=== PATIENT | female | born 1980 | race Caucasian/White ===

== ENCOUNTER 2021-03-17 15:08 | Emergency (ER) | payer SELFPAY ==
--- OUTSIDE RECORDS SUMMARY | 2021-03-17 15:11 | XMS REPORT | Continuity of Care Document ---
:1980 Author Organization [facility] t Address [address] [place] [address] Care Team Providers Name Role Phone Unavailable Unavailable Unavailable Payers Payer Name Policy Type Policy Number Effective Date Expiration Date S ource Problems This patient has no known problems. Allergies, Adverse Reactions, Alerts Allergy Allergy Status Severity Reaction(s) Onset Inactive Treating Comm ents Source Name Type Date Date Clinician No Known DA Active U 2019-0 RODRÍGUEZ Allergie 04-20 [facility] s 00:00: d 00 [facility] Medications This patient has no known medications. Procedures This patient has no known procedures. Results This patient has no known results.
--- NOTE | 2021-03-17 15:53 | ER ---
Nurse's Notes [facility] Name: Nerissa Lam Age: 40 yrs Sex: Female : 1980 Arrival Date: 03/17/2021 Time: 15:09 Bed 19 Private MD: Diagnosis: Allergic contact dermatitis due to plants, except food Presentation: 03/17 15:26 Chief complaint: Patient states: "I got into poison [place] and it is on my face. it is jd3 burning pretty bad.". Coronavirus screen: At this time, the client does not indicate any symptoms associated with coronavirus-19. Ebola Screen: Patient negative for fever greater than or equal to 101.5 degrees Fahrenheit, and additional compatible Ebola Virus Disease symptoms. Initial Sepsis Screen: Does the patient meet any 2 criteria? No. Patient's initial sepsis screen is negative. Does the patient have a suspected source of infection? No. Patient's initial sepsis screen is negative. Risk Assessment: Do you want to hurt yourself or someone else? Patient reports no desire to harm self or others. Onset of symptoms was March 16, 2021. 15:26 Method Of Arrival: Ambulatory jd3 15:26 Acuity: VIKKI 4 jd3 Triage Assessment: 16:10 General: Appears in no apparent distress. Behavior is calm, cooperative, appropriate ll1 for age. 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 - Social history:: Smoking status: Patient reports the use of cigarette tobacco products, smokes one-half pack cigarettes per day. Screenin:13 Abuse screen: Denies threats or abuse. Nutritional screening: No deficits noted. ll1 Tuberculosis screening: No symptoms or risk factors identified. Fall Risk Total Cruz Fall Scale indicates No Risk (0-24 pts). Assessment: 16:00 General: Appears distressed, Behavior is calm, cooperative, appropriate for age. Pain: ll1 Complains of pain in face/hands Quality of pain is described as burning, Aggravated by increased activity. Neuro: No deficits noted. Cardiovascular: No deficits noted. Respiratory: No deficits noted. Derm: Rash noted that is red, raised, Reports itching, rash with itching all over. Swollen fingers/L side of face. Vital Signs: 15:28 BP 104 / 59; Pulse 88; Resp 17 S; Temp 97.8(TE); Pulse Ox 99% on R/A; Weight 98.88 kg jd3 (R); Height 5 ft. 1 in. (154.94 cm) (R); Pain 5/10; 16:10 BP 132 / 93; Pulse 89; Resp 16; ll1 15:28 Body Mass Index 41.19 (98.88 kg, 154.94 cm) jd3 ED Course: 15:09 Patient arrived in ED. am2 15:27 Triage completed. jd3 15:30 Arm band placed on. jd3 15:31 John Townsend RN is Primary Nurse. ll1 15:31 Patient placed in an exam room, on a stretcher. ll1 15:44 Daisy Hill [facility]. kb 15:44 Shane Wolfe MD is Attending Physician. kb 16:13 Patient has correct armband on for positive identification. Bed in low position. Call ll1 light in reach. Side rails up X 1. Pulse ox on. NIBP on. 16:13 No provider procedures requiring assistance completed. Patient did not have IV access ll1 during this emergency room visit. Administered Medications: 16:04 Drug: predniSONE 40 mg Route: PO; ll1 16:27 Follow up: Response: No adverse reaction ll1 16:04 Drug: Pepcid (famotidine) 20 mg Route: PO; ll1 16:27 Follow up: Response: No adverse reaction; RASS: Alert and Calm (0) ll1 Outcome: 15:52 Discharge ordered by MD. kb 16:13 Patient left the ED. ll1 16:13 Discharged to home ambulatory. ll1 16:13 Condition: stable 16:13 Discharge instructions given to patient, Instructed on discharge instructions, follow up and referral plans. medication usage, Demonstrated understanding of instructions, follow-up care, medications, Prescriptions given X 2. Signatures: Daisy Hill FNP-C BASKET PERSON-[employer]ace Bang am2 Elmer Hu RN RN jd3 Kristian, Lynsay, RN RN ll1
--- NOTE | 2021-03-17 15:53 | EDPHYS ---
Physician Documentation [facility] Name: Nerissa Lam Age: 40 yrs Sex: Female : 1980 Arrival Date: 03/17/2021 Time: 15:09 Bed 19 Private MD: ED Physician Shane Wolfe HPI: 03/17 16:24 This 40 yrs old Female presents to ER via Ambulatory with complaints of Rash, kb Skin Problem. 16:24 The patient's rash thought to be caused by Dermatitis. The rash is located on the left kb arm and face. The rash can be described as erythematous, papular. Onset: The symptoms/episode began/occurred 2 day(s) ago. Associated signs and symptoms: Pertinent positives: itching. Severity of symptoms: At their worst the symptoms were moderate in the emergency department the symptoms are unchanged. The patient has not experienced similar symptoms in the past. The patient has not recently seen a physician. INFORMATION TECH: 15:28 LMP N/A - Irregular menses jd3 Historical: - Allergies: 15:28 No Known Allergies; jd3 - Home Meds: 15:28 None [Active]; jd3 - PMHx: 15:28 None; jd3 - PSHx: 15:28 None; jd3 - Immunization history:: Adult Immunizations up to date. - Social history:: Smoking status: Patient reports the use of cigarette tobacco products, smokes one-half pack cigarettes per day. ROS: 16:23 Constitutional: Negative for fever, chills, and weight loss, Eyes: Negative for injury, kb pain, redness, and discharge, ENT: Negative for injury, pain, and discharge, Respiratory: Negative for shortness of breath, cough, wheezing, and pleuritic chest pain, Neuro: Negative for headache, weakness, numbness, tingling, and seizure. 16:23 Skin: Positive for erythema, rash, swelling, of the face and left arm. Exam: 16:23 Constitutional: This is a well developed, well nourished patient who is awake, alert, kb and in no acute distress. Eyes: Pupils equal round and reactive to light, extra-ocular motions intact. Lids and lashes normal. Conjunctiva and sclera are non-icteric and not injected. Cornea within normal limits. Periorbital areas with no swelling, redness, or edema. ENT: Moist Mucous membranes Respiratory: Respirations even and unlabored. No increased work of breathing, no retractions or nasal flaring. MS/ Extremity: Pulses equal, no cyanosis. Neurovascular intact. Full, normal range of motion. Neuro: Awake and alert, GCS 15, oriented to person, place, time, and situation. Moves all extremities. Normal gait. Psych: Awake, alert, with orientation to person, place and time. Behavior, mood, and affect are within normal limits. 16:23 Skin: rash a moderate rash is noted, consistent with contact dermatitis, on the left arm and face. Vital Signs: 15:28 BP 104 / 59; Pulse 88; Resp 17 S; Temp 97.8(TE); Pulse Ox 99% on R/A; Weight 98.88 kg jd3 (R); Height 5 ft. 1 in. (154.94 cm) (R); Pain 5/10; 16:10 BP 132 / 93; Pulse 89; Resp 16; ll1 15:28 Body Mass Index 41.19 (98.88 kg, 154.94 cm) jd3 MDM: 15:44 Patient medically screened. kb 16:23 Data reviewed: vital signs, nurses notes. Data interpreted: Pulse oximetry: on room air kb is 99 %. Interpretation: normal. Counseling: I had a detailed discussion with the patient and/or guardian regarding: the historical points, exam findings, and any diagnostic results supporting the discharge/admit diagnosis, the need for outpatient follow up, a family practitioner, to return to the emergency department if symptoms worsen or persist or if there are any questions or concerns that arise at home. Administered Medications: 16:04 Drug: predniSONE 40 mg Route: PO; ll1 16:27 Follow up: Response: No adverse reaction ll1 16:04 Drug: Pepcid (famotidine) 20 mg Route: PO; ll1 16:27 Follow up: Response: No adverse reaction; RASS: Alert and Calm (0) ll1 Disposition: 03/18 07:43 Co-signature as Attending Physician, Shane Wolfe MD I agree with the assessment and ari plan of care. Disposition: 03/17/21 15:52 Discharged to Home. Impression: Allergic contact dermatitis due to plants, except food. - Condition is Stable. - Discharge Instructions: Poison [place] Dermatitis, Contact Dermatitis, [id number]. - Prescriptions for Pepcid 20 mg Oral Tablet - take 1 tablet by ORAL route every 12 hours for 5 days; 10 tablet. Prednisone 20 mg Oral Tablet - take 1 tablet by ORAL route once daily for 5 days; 5 tablet. - Work release form, Medication Reconciliation Form, Thank You Letter, Antibiotic Education, Prescription Opioid Use form. - Follow up: Emergency Department; When: As needed; Reason: Worsening of condition. Follow up: Private Physician; When: 2 - 3 days; Reason: Recheck today's complaints, Continuance of care, Re-evaluation by your physician. Signatures: Daisy Hill, RECORD CHANGER TESTER-C RECORD CHANGER TESTER-Shane Lopez MD MD cha Davies, Jonathon RN RN jJohn Denson RN RN ll1 Corrections: (The following items were deleted from the chart) 03/17 16:13 15:52 03/17/2021 15:52 Discharged to Home. Impression: Allergic contact dermatitis due ll1 to plants, except food. Condition is Stable. Forms are Medication Reconciliation Form, Thank You Letter, Antibiotic Education, Prescription Opioid Use. Follow up: Emergency Department; When: As needed; Reason: Worsening of condition. Follow up: Private Physician; When: 2 - 3 days; Reason: Recheck today's complaints, Continuance of care, Re-evaluation by your physician. kb
[2021-03-17] MEDS ORDERED: predniSONE 20 MG TAB ONE (16:18)
[2021-03-17] MEDS ORDERED: FAMOTIDINE 20 MG TAB ONE (16:18)
[2021-03-17 16:38] VITALS: BP 104/59; TEMP 97.8; O2SAT 99
== END 2021-03-17 16:13 | disposition home or self-care (01) ==
LOC: ER 15:08
DX: L23.7 Allergic contact dermatitis due to plants, except food (principal); F17.210 Nicotine dependence, cigarettes, uncomplicated
CPT/HCPCS: 99283; J7512

== ENCOUNTER 2021-03-24 11:37 | Emergency (ER) | payer SELFPAY ==
--- OUTSIDE RECORDS SUMMARY | 2021-03-24 11:40 | XMS REPORT | Continuity of Care Document ---
:1980 Author Organization [facility] t Address [address] [place] [address] Care Team Providers Name Role Phone Unavailable Unavailable Unavailable Payers Payer Name Policy Type Policy Number Effective Date Expiration Date S ource Problems This patient has no known problems. Allergies, Adverse Reactions, Alerts Allergy Allergy Status Severity Reaction(s) Onset Inactive Treating Comm ents Source Name Type Date Date Clinician No Known DA Active U 2019-0 RODRÍGUEZ Allergie 04-20 [facility] s 00:00: d 00 [facility] Medications This patient has no known medications. Procedures This patient has no known procedures. Results This patient has no known results.
--- NOTE | 2021-03-24 13:11 | ER ---
Nurse's Notes [facility] Name: Nerissa Lam Age: 40 yrs Sex: Female : 1980 Arrival Date: 03/24/2021 Time: 11:40 Bed 24 Private MD: Diagnosis: Allergic contact dermatitis Presentation: 03/24 12:01 Chief complaint: Patient states: has had itchy rash for 5 days on face, lalo. legs, em stomach, and private parts, was treated with prednisone and Solu-Medrol after getting into [place], pt denies shortness of breath, reports itchiness has not gone away. Coronavirus screen: Client denies travel out of the [place] in the last 14 days. Ebola Screen: Patient negative for fever greater than or equal to 101.5 degrees Fahrenheit, and additional compatible Ebola Virus Disease symptoms Patient denies exposure to infectious person. Patient denies travel to an Ebola-affected area in the 21 days before illness onset. No symptoms or risks identified at this time. Initial Sepsis Screen: Does the patient meet any 2 criteria? No. Patient's initial sepsis screen is negative. Does the patient have a suspected source of infection? No. Patient's initial sepsis screen is negative. Risk Assessment: Do you want to hurt yourself or someone else? Patient reports no desire to harm self or others. Onset of symptoms was March 24, 2021. 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 - Social history:: Smoking status: Patient reports the use of cigarette tobacco products, smokes one-half pack cigarettes per day. Screenin:00 Abuse screen: Denies threats or abuse. Denies injuries from another. Nutritional jl7 screening: No deficits noted. Tuberculosis screening: No symptoms or risk factors identified. Fall Risk None identified. Assessment: 13:00 General: Appears in no apparent distress. comfortable, Behavior is calm, cooperative, jl7 appropriate for age. Pain: Denies pain. Neuro: Level of Consciousness is awake, alert, obeys commands, Oriented to person, place, time, situation. Cardiovascular: Patient's skin is warm and dry. Respiratory: Airway is patent Respiratory effort is even, unlabored, Respiratory pattern is regular, symmetrical. Derm: Skin is pink, warm \T\ dry. Vital Signs: 12:01 BP 126 / 69; Pulse 86; Resp 18; Temp 98.2(O); Pulse Ox 98% on R/A; Weight 81.65 kg; em Height 5 ft. 1 in. (154.94 cm); Pain 0/10; 12:01 Body Mass Index 34.01 (81.65 kg, 154.94 cm) em ED Course: 11:40 Patient arrived in ED. ds1 12:05 Triage completed. em 12:05 Arm band placed on. em 12:41 Wendy Oviedo RN is Primary Nurse. jl7 12:52 Jg Barakat PA is PHCP. jr8 12:52 Luis Domínguez MD is Attending Physician. jr8 13:00 Patient has correct armband on for positive identification. Bed in low position. Call jl7 light in reach. Side rails up X 1. 13:29 No provider procedures requiring assistance completed. Patient did not have IV access jl7 during this emergency room visit. Administered Medications: No medications were administered Outcome: 13:10 Discharge ordered by . jr8 13:29 Discharged to home ambulatory. jl7 13:29 Condition: stable 13:29 Discharge instructions given to patient, Instructed on discharge instructions, follow up and referral plans. medication usage, Demonstrated understanding of instructions, follow-up care, medications, Prescriptions given X 1. 13:29 Patient left the ED. jl7 Signatures: Jose Song, RN RN BatistaCarine ds1 Jg Barakat PA PA jr8 Wendy Oviedo RN RN jl7
--- NOTE | 2021-03-24 13:11 | EDPHYS ---
Physician Documentation [facility] Name: Nerissa Lam Age: 40 yrs Sex: Female : 1980 Arrival Date: 03/24/2021 Time: 11:40 Bed 24 Private MD: ED Physician Luis Domínguez HPI: 03/24 13:53 This 40 yrs old Female presents to ER via Ambulatory with complaints of Rash. jr8 13:53 Patient stated that she was treated last week for contact dermatitis. Stated that the jr8 prednisone helped but only had a prescription for 5 days. Still having rash and itching but overall has improved . 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 - Social history:: Smoking status: Patient reports the use of cigarette tobacco products, smokes one-half pack cigarettes per day. ROS: 13:53 Eyes: Negative for injury, pain, redness, and discharge, ENT: Negative for injury, jr8 pain, and discharge, Neck: Negative for injury, pain, and swelling, Cardiovascular: Negative for chest pain, palpitations, and edema, Respiratory: Negative for shortness of breath, cough, wheezing, and pleuritic chest pain, Abdomen/GI: Negative for abdominal pain, nausea, vomiting, diarrhea, and constipation, Back: Negative for injury and pain, MS/Extremity: Negative for injury and deformity, Neuro: Negative for headache, weakness, numbness, tingling, and seizure. 13:53 Skin: Positive for rash. Exam: 13:53 Constitutional: This is a well developed, well nourished patient who is awake, alert, jr8 and in no acute distress. Cardiovascular: Regular rate and rhythm with a normal S1 and S2. No gallops, murmurs, or rubs. Normal PMI, no JVD. No pulse deficits. Respiratory: Lungs have equal breath sounds bilaterally, clear to auscultation and percussion. No rales, rhonchi or wheezes noted. No increased work of breathing, no retractions or nasal flaring. MS/ Extremity: Pulses equal, no cyanosis. Neurovascular intact. Full, normal range of motion. Neuro: Awake and alert, GCS 15, oriented to person, place, time, and situation. 13:53 Skin: rash a mild rash is noted, rash can be described as erythematous, papular, on the chest, abdomen, pelvis, right arm and left arm. Vital Signs: 12:01 BP 126 / 69; Pulse 86; Resp 18; Temp 98.2(O); Pulse Ox 98% on R/A; Weight 81.65 kg; em Height 5 ft. 1 in. (154.94 cm); Pain 0/10; 12:01 Body Mass Index 34.01 (81.65 kg, 154.94 cm) em MDM: 12:54 Patient medically screened. 8 13:10 Data reviewed: vital signs, nurses notes, and as a result, I will discharge patient. jr8 Data interpreted: Pulse oximetry: on room air is 98 %. Interpretation: normal. Counseling: I had a detailed discussion with the patient and/or guardian regarding: the historical points, exam findings, and any diagnostic results supporting the discharge/admit diagnosis, the need for outpatient follow up, a family practitioner, to return to the emergency department if symptoms worsen or persist or if there are any questions or concerns that arise at home. Administered Medications: No medications were administered Disposition: 15:08 Co-signature as Attending Physician, Luis Domínguez MD I agree with the assessment and kdr plan of care. Disposition: 03/24/21 13:10 Discharged to Home. Impression: Allergic contact dermatitis. - Condition is Stable. - Discharge Instructions: Contact Dermatitis. - Prescriptions for Medrol (Curtis) 4 mg Oral Tablets, Dose Pack - take 1 tablet by ORAL route as directed - follow package instructions; 1 packet. - Work release form, Medication Reconciliation Form, Thank You Letter, Antibiotic Education, Prescription Opioid Use form. - Follow up: Private Physician; When: 1 week; Reason: Recheck today's complaints, Continuance of care, Re-evaluation by your physician. - Problem is new. - Symptoms have improved. Signatures: Luis Domínguez MD MD [facility] Jose Song, RN RN em Jg Barakat PA PA jr8 Wendy Oviedo RN RN jl7 Corrections: (The following items were deleted from the chart) 13:29 13:10 03/24/2021 13:10 Discharged to Home. Impression: Allergic contact dermatitis. jl7 Condition is Stable. Forms are Medication Reconciliation Form, Thank You Letter, Antibiotic Education, Prescription Opioid Use. Follow up: Private Physician; When: 1 week; Reason: Recheck today's complaints, Continuance of care, Re-evaluation by your physician. Problem is new. Symptoms have improved. jr8 14:28 13:53 Patient stated that he was treated last week for contact dermatitis. Stated that jr8 the prednisone helped but only had a prescription for 5 days. Still having rash and itching but overall has improved . jr8
[2021-03-24 14:07] VITALS: BP 126/69; TEMP 98.2; O2SAT 98
== END 2021-03-24 13:29 | disposition home or self-care (01) ==
LOC: ER 11:37
DX: L23.9 Allergic contact dermatitis, unspecified cause (principal); F17.210 Nicotine dependence, cigarettes, uncomplicated
CPT/HCPCS: 99282

== ENCOUNTER 2021-05-17 10:41 | Emergency (ER) | payer SELFPAY ==
--- OUTSIDE RECORDS SUMMARY | 2021-05-17 10:44 | XMS REPORT | Continuity of Care Document ---
:1980 Author Organization [facility] t Address [address] [place] [address] Care Team Providers Name Role Phone Yenifer, S Attending Clinician Unavailable Physician, Primary or Family Admitting Clinician Unavailabl e Payers Payer Name Policy Type Policy Number Effective Date Expiration Date S ource Problems This patient has no known problems. Allergies, Adverse Reactions, Alerts Allergy Allergy Status Severity Reaction(s) Onset Inactive Treating Comm ents Source Name Type Date Date Clinician No Known DA Active U 0 [facility] Allergie 617 [facility] s 00:00: d 00 [facility] Medications This patient has no known medications. Procedures This patient has no known procedures. Encounters Start End Encounter Admission Attending Care Care Encounter Source Date/Time Date/Time Type Type Clinicians Facility Department ID 2021-03-23 2021-03-23 Emergency EM Yenifer, [facility]Y [id number] [facility] 15:59:00 20:56:[id number] [facility] Results This patient has no known results.
--- NOTE | 2021-05-17 12:37 | RAD REPORT ---
EXAM DESCRIPTION: RAD - Ankle Right 2 View - 05/17/2021 12:11 pm CLINICAL HISTORY: Right ankle pain FINDINGS: No fracture or dislocation is seen. Marked lateral soft tissue swelling. Large plantar calcaneal spur
--- NOTE | 2021-05-17 13:33 | ER ---
Nurse's Notes [facility] Name: Nerissa Lam Age: 40 yrs Sex: Female : 1980 Arrival Date: 05/17/2021 Time: 10:42 Bed DX2 Private MD: Diagnosis: Sprain of ankle-right;Cellulitis of right lower limb Presentation: 05/17 11:06 Chief complaint: Patient states: Right ankle swelling and pain x 2 days, denies trauma. jl7 Coronavirus screen: Client denies travel out of the [place] in the last 14 days. At this time, the client does not indicate any symptoms associated with coronavirus-19. Ebola Screen: No symptoms or risks identified at this time. Initial Sepsis Screen: Does the patient meet any 2 criteria? No. Patient's initial sepsis screen is negative. Does the patient have a suspected source of infection? No. Patient's initial sepsis screen is negative. Risk Assessment: Do you want to hurt yourself or someone else? Patient reports no desire to harm self or others. Onset of symptoms was May 15, 2021. Care prior to arrival: None. 11:06 Method Of Arrival: Ambulatory [facility] 11:06 Acuity: VIKKI 4 jl7 Triage Assessment: 11:07 General: Appears in no apparent distress. uncomfortable, Behavior is calm, cooperative, jl7 appropriate for age. Pain: Complains of pain in right lateral malleolus Pain currently is 8 out of 10 on a pain scale. 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 - Social history:: Smoking status: Patient reports the use of cigarette tobacco products, smokes one pack cigarettes per day. Screenin:36 Abuse screen: Denies threats or abuse. Denies injuries from another. Nutritional iw screening: No deficits noted. Tuberculosis screening: No symptoms or risk factors identified. Fall Risk None identified. Assessment: 12:35 General: Appears in no apparent distress. Behavior is calm, cooperative. Pain: iw Complains of pain in right foot and right lateral malleolus. Neuro: Level of Consciousness is awake, alert, obeys commands, Oriented to person, place, time, situation, Moves all extremities. Cardiovascular: Patient's skin is warm and dry. Respiratory: Respiratory effort is even, unlabored, Respiratory pattern is regular. Derm: Skin is intact, is healthy with good turgor. Musculoskeletal: Swelling present in right lateral malleolus. Vital Signs: 11:06 BP 116 / 73; Pulse 80; Resp 17; Temp 97.3; Pulse Ox 99% ; Weight 89.81 kg; Height 5 ft. jl7 1 in. (154.94 cm); Pain 8/10; 11:06 Body Mass Index 37.41 (89.81 kg, 154.94 cm) jl7 ED Course: 10:42 Patient arrived in ED. am2 11:07 Triage completed. jl7 11:07 Arm band placed on right wrist. Patient placed in waiting room, Patient notified of jl7 wait time. 11:46 Luis Domínguez MD is Attending Physician. kdr 12:11 XRAY Ankle RIGHT 2 view In Process Unspecified. EDMS 12:35 Denise Ragland, RN is Primary Nurse. iw 13:32 Gustavo Garay MD is Referral Physician. kdr 13:39 No provider procedures requiring assistance completed. Patient did not have IV access ld1 during this emergency room visit. intact, bleeding controlled, No redness/swelling at site. 13:40 Patient has correct armband on for positive identification. Bed in low position. Call ld1 light in reach. Side rails up X2. Pulse ox on. NIBP on. Administered Medications: No medications were administered Outcome: 13:33 Discharge ordered by . kdr 13:40 Discharged to home with crutches. ld1 13:40 Condition: stable 13:40 Discharge instructions given to patient, Instructed on discharge instructions, follow up and referral plans. medication usage, Demonstrated understanding of instructions, follow-up care, medications. 13:40 Patient left the ED. ld1 Signatures: Dispatcher [employer] EDMS Luis Domínguez MD MD kdr Denise Ragland RN RN iw Wedny Oviedo RN RN jl7 Peace Clemens am2 Dibbern, Debo, RN RN ld1
--- NOTE | 2021-05-17 13:33 | EDPHYS ---
Physician Documentation [facility] Name: Nerissa Lam Age: 40 yrs Sex: Female : 1980 Arrival Date: 05/17/2021 Time: 10:42 Bed DX2 Private MD: ED Physician Luis Domínguez HPI: 05/17 15:03 This 40 yrs old Female presents to ER via Ambulatory with complaints of right kdr ankle swelling. 15:03 The patient presents with decreased range of motion, an injury, pain, that is acute, kdr swelling, tenderness. The complaints affect the right ankle. Onset: The symptoms/episode began/occurred 3 day(s) ago. Context: The problem was sustained at home, resulted from an unknown cause, The mechanism of injury is unknown. The patient can partially bear weight on the affected extremity. The patient is not able to ambulate. Associated signs and symptoms: Pertinent positives: swelling, of the lateral aspect of right foot. Modifying factors: The symptoms are alleviated by nothing, the symptoms are aggravated by weight bearing. Severity of symptoms: At their worst the symptoms were mild, just prior to arrival, in the emergency department the symptoms are unchanged. The patient has not experienced similar symptoms in the past. The patient has not recently seen a physician. 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 - Social history:: Smoking status: Patient reports the use of cigarette tobacco products, smokes one pack cigarettes per day. ROS: 15:03 Constitutional: Negative for fever, chills, and weight loss, Eyes: Negative for injury, kdr pain, redness, and discharge, Neck: Negative for injury, pain, and swelling, Cardiovascular: Negative for chest pain, palpitations, and edema, Respiratory: Negative for shortness of breath, cough, wheezing, and pleuritic chest pain, Abdomen/GI: Negative for abdominal pain, nausea, vomiting, diarrhea, and constipation, Back: Negative for injury and pain, : Negative for injury, bleeding, discharge, and swelling, Skin: Negative for injury, rash, and discoloration, Neuro: Negative for headache, weakness, numbness, tingling, and seizure activity. Psych: Negative for depression, anxiety, suicide ideation, homicidal ideation, and hallucinations, Allergy/Immunology: Negative for hives, rash, and allergies, Endocrine: Negative for neck swelling, polydipsia, polyuria, polyphagia, and marked weight changes, Hematologic/Lymphatic: Negative for swollen nodes, abnormal bleeding, and unusual bruising. 15:03 MS/extremity: Positive for injury or acute deformity, decreased range of motion, pain, swelling, tenderness, of the lateral aspect of right foot. Exam: 15:03 Constitutional: This is a well developed, well nourished patient who is awake, alert, kdr and in no acute distress. 15:03 Musculoskeletal/extremity: ROM: full passive range of motion, in the lateral aspect of right foot, Circulation is intact in all extremities. Sensation intact. Vital Signs: 11:06 BP 116 / 73; Pulse 80; Resp 17; Temp 97.3; Pulse Ox 99% ; Weight 89.81 kg; Height 5 ft. jl7 1 in. (154.94 cm); Pain 8/10; 11:06 Body Mass Index 37.41 (89.81 kg, 154.94 cm) jl7 MDM: 13:33 Patient medically screened. kdr 15:03 Data reviewed: vital signs, nurses notes, radiologic studies. Counseling: I had a kdr detailed discussion with the patient and/or guardian regarding: the historical points, exam findings, and any diagnostic results supporting the discharge/admit diagnosis, radiology results, the need for outpatient follow up. Response to treatment: patient is well hydrated. Special discussion: I discussed with the patient/guardian in detail that at this point there is no indication for admission to the hospital. It is understood, however, that if the symptoms persist or worsen the patient needs to return immediately for re-evaluation. 05/17 11:09 Order name: XRAY Ankle RIGHT 2 view; Complete Time: 13:19 jl7 05/17 13:26 Order name: Darren wrap-joint; Complete Time: 13:33 kdr 05/17 13:26 Order name: Crutches; Complete Time: 13:33 kdr Administered Medications: No medications were administered Disposition Summary: 05/17/21 13:33 Discharge Ordered Location: Home kdr Problem: new kdr Symptoms: have improved kdr Condition: Stable kdr Diagnosis - Sprain of ankle - right kdr - Cellulitis of right lower limb kdr Followup: kdr - With: Private Physician - When: 2 - 3 days - Reason: If symptoms return, Further diagnostic work-up, Recheck today's complaints, Continuance of care, Re-evaluation by your physician Followup: kdr - With: Gustavo Garay MD - When: 2 - 3 days - Reason: If symptoms return, Further diagnostic work-up, Recheck today's complaints, Continuance of care, Re-evaluation by your physician Discharge Instructions: - Discharge Summary Sheet kdr - Ankle Sprain, [id number] kdr - Cellulitis, Adult, [id number] kdr - Ankle Pain kdr Forms: - Medication Reconciliation Form kdr - Thank You Letter kdr - Antibiotic Education kdr - Work release form mt Prescriptions: - Cephalexin 500 mg Oral Capsule - take 1 capsule by ORAL route every 8 hours for 10 days; 21 capsule; Refills: 0, kdr Product Selection Permitted - Ibuprofen 600 mg Oral Tablet - take 1 tablet by ORAL route every 6 hours As needed take with food; 12 tablet; kdr Refills: 0, Product Selection Permitted Signatures: Dispatcher [employer] Luis Gamez MD MD kdr Wendy Oviedo RN RN jl7
[2021-05-17 13:57] VITALS: BP 116/73; TEMP 97.3; O2SAT 99
== END 2021-05-17 13:40 | disposition home or self-care (01) ==
LOC: ER 10:41
DX: S93.401A Sprain of unspecified ligament of right ankle, initial encounter (principal); L03.115 Cellulitis of right lower limb; F17.210 Nicotine dependence, cigarettes, uncomplicated
CPT/HCPCS: 99283

== ENCOUNTER 2022-01-10 08:54 | Emergency (ER) | payer OTHER, SELFPAY ==
--- OUTSIDE RECORDS SUMMARY | 2022-01-10 08:57 | XMS REPORT | Continuity of Care Document ---
:1980 Author Organization [facility] t Address [address] [place] [address] Care Team Providers Name Role Phone Yenifer, [...] Date Clinician No Known DA Active U 2020-0 [facility] Allergie 04-20 [facility] s 00:00: d 00 [facility] No Known DA Active U 2020-0 [facility] Medications This patient has no known medications. Procedures This patient has no known procedures. Encounters Start End Encounter Admission Attending Care Care Encounter Source Date/Time Date/Time Type Type Clinicians Facility Department ID 2020-04-20 Inpatient [facility] FRANDY [id number] [facility] 01:50:00 [id number] [facility] 2021-03-23 2021-03-23 Emergency EM Yenifer, RODRÍGUEZMN FRANDY [id number] [facility] 15:59:00 20:56:00 Marina [id number] [facility] Results This patient has no known results.
--- NOTE | 2022-01-10 09:08 | EDPHYS ---
Physician Documentation [facility] Name: Nerissa Lam Age: 41 yrs Sex: Female : 1980 Arrival Date: 01/10/2022 Time: 08:57 Bed 7 Private MD: Shane Tomlinson HPI: 01/10 09:09 This 41 yrs old Female presents to ER via Unassigned with complaints of Hand Swelling, jmm Arm Pain - swelling. 09:09 The patient or guardian reports swelling. Onset: The symptoms/episode began/occurred jmm gradually, 2 day(s) ago. Modifying factors: The symptoms are alleviated by nothing, the symptoms are aggravated by nothing. Associated signs and symptoms: Pertinent negatives: fever. This is a 41-year-old female no chronic medical conditions presents emerged part with complaints of swelling to her hands bilaterally. 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 Denies pain but states both of her hands itch and feel "stinging". 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 - Social history:: Smoking status: Patient reports the use of cigarette tobacco products, smokes one-half pack cigarettes per day. ROS: 09:09 Constitutional: Negative for fever, chills, and weight loss, Cardiovascular: Negative jmm for chest pain, palpitations, and edema, Respiratory: Negative for shortness of breath, cough, wheezing, and pleuritic chest pain. 09:09 Skin: Positive for erythema, rash, swelling. 09:09 All other systems are negative. Exam: 09:09 Constitutional: This is a well developed, well nourished patient who is awake, alert, jmm and in no acute distress. Head/Face: atraumatic. Eyes: EOMI, no conjunctival erythema appreciated ENT: Moist Mucus Membranes Neck: Trachea midline, Supple Chest/axilla: Normal chest wall appearance and motion. Cardiovascular: Regular rate and rhythm. No edema appreciated Respiratory: Normal respirations, no respiratory distress appreciated Abdomen/GI: Non distended, soft Back: Normal ROM 09:09 Musculoskeletal/extremity: Full range of motion noted to the hands and wrist bilaterally, full radial pulse bilaterally, full orthotic assistant strength, compartments are soft, neurovascular intact. 09:09 Skin: Erythema and swelling noted to the hands bilaterally, nontender to palpation, nonindurated. 09:09 Neuro: Orientation: is normal, Mentation: is normal, Memory: is normal. 09:09 Psych: Behavior/mood is pleasant, cooperative. Vital Signs: 09:07 BP 145 / 99; Pulse 92; Resp 17; Temp 97.9; Pulse Ox 99% ; Weight 81.19 kg; Height 5 ft. ap3 1 in. (154.94 cm); 09:07 Body Mass Index 33.82 (81.19 kg, 154.94 cm) ap3 MDM: 09:07 Patient medically screened. [facility] 09:11 Data reviewed: vital signs, nurses notes. Counseling: I had a detailed discussion with [facility] the patient and/or guardian regarding: the historical points, exam findings, and any diagnostic results supporting the discharge/admit diagnosis, the need for outpatient follow up, to return to the emergency department if symptoms worsen or persist or if there are any questions or concerns that arise at home. ED course: Patient is alert nontoxic in appearance in the ED. Physical exam findings most consistent with dermatitis. Advised follow-up with dermatology and otherwise given strict return precautions. Patient understood agrees plan of care.. Administered Medications: No medications were administered Disposition Summary: 01/10/22 09:07 Discharge Ordered Location: Home [facility] Condition: Stable [facility] Diagnosis - Dermatitis of Hand [facility] Followup: [facility] - With: Private Physician - When: 2 - 3 days - Reason: Recheck today's complaints, Continuance of care, Re-evaluation by your physician Discharge Instructions: - Discharge Summary Sheet [facility] - Contact Dermatitis [facility] Forms: - Medication Reconciliation Form [facility] - Work release form [facility] - Thank You Letter [facility] - Antibiotic Education [facility] - Prescription Opioid Use [facility] Prescriptions: - Prednisone 20 mg Oral Tablet - take 3 tablets by ORAL route once daily for 5 days; 15 tablet; Refills: 0, [facility] Product Selection Permitted - Doxycycline Hyclate 100 mg Oral Tablet - take 1 tablet by ORAL route every 12 hours; 20 tablet; Refills: 0, Product [facility] Selection Permitted Addendum: 01/14/2022 18:22 Co-signature as Attending Physician, Shane Wolfe MD I agree with the assessment and c sharp plan of care. Signatures: Shane Wolfe, Joe Khan MD, cha, PA PA jmm Prokisch, Amanda, RN RN ap3 Corrections: (The following items were deleted from the chart) 01/10 09:10 09:09 PSHx: section; ap3 ap3
--- NOTE | 2022-01-10 09:31 | ER ---
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 This even occurred on 01/04/2022, and has yet to resolve. Patient presents with redness on the lower portion of her upper extremities, including her hands and fingers. Coronavirus screen: At this time, the client does not indicate any symptoms associated with coronavirus-19. Ebola Screen: No symptoms or risks identified at this time. Initial Sepsis Screen: Does the patient meet any 2 criteria? No. Patient's initial sepsis screen is negative. Does the patient have a suspected source of infection? No. Patient's initial sepsis screen is negative. Risk Assessment: Do you want to hurt yourself or someone else? Patient reports no desire to harm self or others. Onset of symptoms was January 04, 2022. 09:07 Method Of Arrival: Ambulatory ap3 09:07 Acuity: VIKKI 4 ap3 Triage Assessment: 09:10 General: Appears in no apparent distress. Behavior is calm, cooperative. Pain: Denies ap3 pain. Neuro: Level of Consciousness is awake, alert, obeys commands, Oriented to person, place, time, situation, Appropriate for age. Cardiovascular: Patient's skin is warm and dry. Respiratory: Airway is patent. Derm: Derm: Skin is redness noted on the lower portion of her upper extremities. Musculoskeletal: Swelling present in right arm and left arm. 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 - Social history:: Smoking status: Patient reports the use of cigarette tobacco products, smokes one-half pack cigarettes per day. Screenin:11 Abuse screen: Denies threats or abuse. Nutritional screening: No deficits noted. ap3 Tuberculosis screening: No symptoms or risk factors identified. Fall Risk None identified. Vital Signs: 09:07 BP 145 / 99; Pulse 92; Resp 17; Temp 97.9; Pulse Ox 99% ; Weight 81.19 kg; Height 5 ft. ap3 1 in. (154.94 cm); 09:07 Body Mass Index 33.82 (81.19 kg, 154.94 cm) ap3 ED Course: 08:57 Patient arrived in ED. as 09:01 Joe Degroot PA is PHCP. [place] 09:01 Shane Wolfe MD is Attending Physician. [facility] 09:07 Peace Pascal, CARRIE is Primary Nurse. ap3 09:09 Triage completed. ap3 09:11 Patient has correct armband on for positive identification. Bed in low position. Call ap3 light in reach. Side rails up X 1. Adult w/ patient. Pulse ox on. NIBP on. Door closed. Noise minimized. 09:11 Arm band placed on right wrist. ap3 09:11 No provider procedures requiring assistance completed. Patient did not have IV access ap3 during this emergency room visit. Administered Medications: No medications were administered Outcome: 09:07 Discharge ordered by . [facility] 09:12 Condition: good ap3 09:20 Discharged to home ambulatory, with family. ap3 09:20 Discharge instructions given to patient, Instructed on discharge instructions, follow up and referral plans. medication usage, Demonstrated understanding of instructions, follow-up care, medications, Prescriptions given X 2. 09:30 Patient left the ED. ap3 Signatures: Joe Degroot PA PA Sandra Shelley Amanda, RN RN ap3 Corrections: (The following items were deleted from the chart) 09:10 09:09 PSHx: section; ap3 ap3
[2022-01-10 09:37] VITALS: BP 145/99; TEMP 97.9; O2SAT 99
== END 2022-01-10 09:30 | disposition home or self-care (01) ==
LOC: ER 08:54
DX: L30.9 Dermatitis, unspecified (principal); F17.210 Nicotine dependence, cigarettes, uncomplicated
CPT/HCPCS: 99283

== ENCOUNTER 2022-02-25 20:47 | Emergency (ER) | payer SELFPAY ==
--- OUTSIDE RECORDS SUMMARY | 2022-02-25 20:50 | XMS REPORT | Continuity of Care Document ---
:1980 Author Organization [facility] t Address [address] [place] [address] Care Team Providers Name Role Phone Yenifer, [...] Clinician No Known DA Active U 2020-0 [facility] Allergie 04-20 [facility] s 00:00: d 00 [facility] No Known DA Active U 2020-0 [facility] Allergie 04-20 [facility] s 00:00: d 00 [facility] Medications This patient has no known medications. Procedures This patient has no known procedures. Encounters Start End Encounter Admission Attending Care Care Encounter Source Date/Time Date/Time Type Type Clinicians Facility Department ID 2020-04-20 Inpatient [facility] FRANDY [id number] [facility] 01:50:00 [id number] [facility] 2021-03-23 2021-03-23 Emergency EM Yenifer, RODRÍGUEZMN FRANDY [id number] [facility] 15:59:00 20:56:00 Marina [id number] [facility] Results This patient has no known results.
[2022-02-25] MEDS ORDERED: IBUPROFEN 400 MG TAB ONE (22:17)
[2022-02-25] MEDS ORDERED: HYDROCODONE/APAP 7.5/325 MG TAB ONE (22:18)
--- NOTE | 2022-02-25 23:29 | EDPHYS ---
Physician Documentation [facility] Name: Nerissa Lam Age: 41 yrs Sex: Female : 1980 Arrival Date: 02/25/2022 Time: 20:49 Bed 13 Private MD: ED Physician Luis Domínguez HPI: 02/25 22:15 This 41 yrs old Female presents to ER via Ambulatory with complaints of Knee Pain, cp Ankle Swelling. 22:15 The patient presents with pain, that is acute, swelling, tenderness. The complaints cp affect the right ankle and right knee. 22:15 Context: resulted from an unknown cause, the patient can fully bear weight, the patient cp is able to ambulate, with moderate difficulty, Problem is a result from a previous injury: No. Onset: The symptoms/episode began/occurred gradually, and became worse today. Modifying factors: the symptoms are aggravated by weight bearing, bending knee. 22:15 Associated signs and symptoms: Pertinent negatives fever, numbness, warmth, weakness. cp Treatment prior to arrival includes: no previous treatment. 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 - Social history:: Smoking status: Patient reports the use of cigarette tobacco products, smokes 1.5 packs per day. ROS: 22:20 MS/extremity: Positive for pain, swelling, tenderness, of the right ankle and right cp knee, Negative for injury or acute deformity, decreased range of motion, paresthesias. 22:20 Eyes: Negative for injury, pain, redness, and discharge. cp 22:20 Constitutional: Negative for body aches, chills, fever, poor PO intake. 22:20 Neck: Negative for pain with movement, pain at rest, stiffness. 22:20 Cardiovascular: Negative for chest pain, palpitations. 22:20 Respiratory: Negative for cough, shortness of breath, wheezing. 22:20 Abdomen/GI: Negative for abdominal pain, nausea, vomiting, and diarrhea. 22:20 Back: Negative for pain at rest, pain with movement. 22:20 Neuro: Negative for dizziness, headache, weakness. 22:20 All other systems are negative. Exam: 22:25 Constitutional: The patient appears in no acute distress, alert, awake, non-toxic, well cp developed, well nourished, uncomfortable. 22:25 Head/Face: Normocephalic, atraumatic. cp 22:25 Neck: ROM/movement: is normal, is supple, without pain, no range of motions limitations. 22:25 Chest/axilla: Inspection: normal. 22:25 Cardiovascular: Rate: normal. 22:25 Respiratory: the patient does not display signs of respiratory distress, Respirations: normal, no use of accessory muscles, no retractions, labored breathing, is not present. 22:25 Abdomen/GI: Inspection: abdomen appears normal. 22:25 Back: pain, is absent, ROM is normal. 22:25 Musculoskeletal/extremity: Extremities: no gross swelling noted, skin discoloration and/or skin erythema, Joints: the right knee displays pain at rest, painful range of motion, swelling, tenderness, the lateral right ankle displays pain at rest, painful range of motion, swelling, tenderness, DVT Exam: tenderness, that is moderate, of the right leg, of the right calf. Vital Signs: 21:35 BP 99 / 68; Pulse 77; Resp 18; Temp 98.9(O); Pulse Ox 99% on R/A; Weight 83.91 kg; 5 Height 5 ft. 1 in. (154.94 cm); Pain 8/10; 23:24 BP 113 / 61; Pulse 77; Resp 17; Pulse Ox 97% on R/A; 5 21:35 Body Mass Index 34.96 (83.91 kg, 154.94 cm) [facility] MDM: 21:27 Patient medically screened. cp 23:28 Data reviewed: vital signs, nurses notes, radiologic studies, plain films. cp 23:28 Test interpretation: by ED physician or midlevel provider: plain radiologic studies. cp Counseling: I had a detailed discussion with the patient and/or guardian regarding: the historical points, exam findings, and any diagnostic results supporting the discharge/admit diagnosis, radiology results, the need for outpatient follow up, a orthopedic surgeon, to return to the emergency department if symptoms worsen or persist or if there are any questions or concerns that arise at home. Response to treatment: the patient's symptoms have markedly improved after treatment, and as a result, I will discharge patient. 02/25 21:59 Order name: US Extremity Venous Unilateral Ltd cp 02/25 22:02 Order name: XRAY Knee RIGHT 3 view cp 02/25 22:02 Order name: XRAY Ankle RIGHT 3 view cp 02/25 23:19 Order name: Darren Wrap: right knee; Complete Time: 23:48 cp 02/25 23:19 Order name: Aircast Ankle Splint; Complete Time: 23:48 cp 02/25 23:19 Order name: Crutches; Complete Time: 23:48 cp Administered Medications: 22:17 Drug: Ibuprofen 800 mg Route: PO; sm5 23:25 Follow up: Response: Pain is decreased sm5 22:17 Drug: Hydrocodone-Acetaminophen (7.5 mg-325 mg) 1 tabs Route: PO; sm5 23:25 Follow up: Response: Pain is decreased sm5 Disposition Summary: 02/25/22 23:29 Discharge Ordered Location: Home cp Problem: new cp Symptoms: have improved cp Condition: Stable cp Diagnosis - Pain in right knee cp - Pain in right ankle and joints of right foot cp Followup: cp - With: Amari Zavaleta MD - When: 2 - 3 days - Reason: Worsening of condition Discharge Instructions: - Discharge Summary Sheet cp - Elastic Bandage and RICE Therapy cp - Acute Knee Pain, Adult cp - Ankle Pain cp - Form - Excuse from Work, School, or Physical Activity cp Forms: - Medication Reconciliation Form cp - Thank You Letter cp - Antibiotic Education cp - Prescription Opioid Use cp - Family Work Release cp Prescriptions: - Ultram 50 mg Oral Tablet - take 1 tablet by ORAL route every 6 hours As needed; 12 tablet; Refills: 0, cp Product Selection Permitted - Diclofenac Sodium 75 mg Oral Tablet Sustained Release - take 1 tablet by ORAL route 2 times per day; 30 tablet; Refills: 0, Product cp Selection Permitted Addendum: 02/28/2022 08:30 Co-signature as Attending Physician, Luis Domínguez MD I agree with the assessment and k dr plan of care. Signatures: Dispatcher [employer] Luis Gamez MD MD kdr Page, Corey, PA PA cp Mayelin iDsla, RN RN sm5
--- NOTE | 2022-02-25 23:29 | ER ---
Nurse's Notes [facility] Name: Nerissa Lam Age: 41 yrs Sex: Female : 1980 Arrival Date: 02/25/2022 Time: 20:49 Bed 13 Private MD: Diagnosis: Pain in right knee;Pain in right ankle and joints of right foot Presentation: 02/25 21:35 Chief complaint: Patient states: she has been having knee pain for the past few weeks sm5 as well as ankle swelling. denies injury or trauma. Coronavirus screen: Vaccine status: Patient reports being unvaccinated. Ebola Screen: No symptoms or risks identified at this time. Initial Sepsis Screen: Does the patient meet any 2 criteria? No. Patient's initial sepsis screen is negative. Does the patient have a suspected source of infection? No. Patient's initial sepsis screen is negative. Risk Assessment: Do you want to hurt yourself or someone else? Patient reports no desire to harm self or others. Onset of symptoms was February 11, 2022. 21:35 Method Of Arrival: Ambulatory 5 21:35 Acuity: VIKKI 4 sm5 Triage Assessment: 21:36 General: Appears in no apparent distress. Behavior is cooperative. Pain: Complains of sm5 pain in right knee and anterior aspect of right ankle. Neuro: No deficits noted. Level of Consciousness is awake, alert, obeys commands, Oriented to person, place, time, situation. Cardiovascular: No deficits noted. Capillary refill < 3 seconds Patient's skin is warm and dry. Respiratory: No deficits noted. Airway is patent Trachea midline Respiratory effort is even, unlabored. Musculoskeletal: Swelling present in right ankle. YARD CLERK: 23:49 unknown sm5 Historical: - Allergies: 21:36 No Known Allergies; sm5 - Home Meds: 21:36 None [Active]; sm5 - PMHx: 21:36 None; sm5 - Immunization history:: Client reports having NOT received the Covid vaccine. - Social history:: Smoking status: Patient reports the use of cigarette tobacco products, smokes 1.5 packs per day. Screenin:37 Abuse screen: Denies threats or abuse. Denies injuries from another. Nutritional sm5 screening: No deficits noted. Tuberculosis screening: No symptoms or risk factors identified. Fall Risk None identified. Assessment: 21:45 Reassessment: see triage assessment. sm5 22:50 Reassessment: No changes from previously documented assessment. Patient and/or family 5 updated on plan of care and expected duration. Pain level reassessed. Vital Signs: 21:35 BP 99 / 68; Pulse 77; Resp 18; Temp 98.9(O); Pulse Ox 99% on R/A; Weight 83.91 kg; sm5 Height 5 ft. 1 in. (154.94 cm); Pain 8/10; 23:24 BP 113 / 61; Pulse 77; Resp 17; Pulse Ox 97% on R/A; sm5 21:35 Body Mass Index 34.96 (83.91 kg, 154.94 cm) 5 ED Course: 20:49 Patient arrived in ED. mr 21:25 Shane Mayo PA is PHCP. cp 21:25 Luis Domínguez MD is Attending Physician. cp 21:31 Mayelin Disla, CARRIE is Primary Nurse. sm5 21:36 Triage completed. sm5 21:37 Arm band placed on right wrist. sm5 21:37 Patient has correct armband on for positive identification. Bed in low position. Call 5 light in reach. Side rails up X2. Pulse ox on. NIBP on. 22:19 XRAY Knee RIGHT 3 view In Process Unspecified. EDMS 22:19 XRAY Ankle RIGHT 3 view In Process Unspecified. EDMS 23:22 US Extremity Venous Unilateral Ltd In Process Unspecified. EDMS 23:28 Amari Zavaleta MD is Referral Physician. cp 23:48 Crutch training done. Darren wrap to right knee Air stirrup applied to right ankle. sm5 23:49 No provider procedures requiring assistance completed. Patient did not have IV access 5 during this emergency room visit. Administered Medications: 22:17 Drug: Ibuprofen 800 mg Route: PO; sm5 23:25 Follow up: Response: Pain is decreased sm5 22:17 Drug: Hydrocodone-Acetaminophen (7.5 mg-325 mg) 1 tabs Route: PO; sm5 23:25 Follow up: Response: Pain is decreased 5 Outcome: 23:29 Discharge ordered by . cp 23:50 Discharged to home ambulatory, with crutches, with family. sm5 23:50 Condition: stable 23:50 Discharge instructions given to patient, Instructed on discharge instructions, follow up and referral plans. crutch walking, Demonstrated understanding of instructions, follow-up care, crutch walking, Prescriptions given X 2. 23:50 Patient left the ED. sm5 Signatures: Dispatcher [employer] DANIELLE CarlisleClara mr Shane Mayo, Mayelin Kim cp, RN RN sm5
[2022-02-25 23:55] VITALS: TEMP 98.9
[2022-02-25 23:56] VITALS: BP 113/61; O2SAT 97
--- NOTE | 2022-02-26 13:45 | RAD REPORT ---
EXAM DESCRIPTION: RAD - Knee Right 3 View - 02/25/2022 10:17 pm CLINICAL HISTORY: PAIN. COMPARISON: None. TECHNIQUE: Three views of the right knee: AP, oblique, and lateral radiographs. FINDINGS: No acute osseous abnormality is identified. Alignment is maintained. No evidence of suprap atellar joint effusion. IMPRESSION: No acute osseous abnormality identified. Electronically signed by: Robyn Couch MD 02/25/2022 10:35 PM CDT Due to temporary technical issues with the PACS/Fluency reporting system, reports are being signed by the in house radiologists without review as a courtesy to insure prompt reporting. The interpreting radiologist is fully responsible for the content of the report
--- NOTE | 2022-02-26 13:47 | RAD REPORT ---
EXAM DESCRIPTION: RAD - Ankle Right 3 View - 02/25/2022 10:17 pm CLINICAL HISTORY: PAIN. COMPARISON: None. TECHNIQUE: Three views of the right ankle were obtained: AP, oblique, and lateral radiographs. FINDINGS: No acute osseous abnormality is identified. No ankle mortise widening. The talar dome appe ars intact. Small chronic plantar fascial enthesophyte. Soft tissue swelling about the ankle. IMPRESSION: No acute osseous abnormality identified. Electronically signed by: Robyn Couch MD 02/25/2022 10:35 PM CDT Due to temporary technical issues with the PACS/Fluency reporting system, reports are being signed by the in house radiologists without review as a courtesy to insure prompt reporting. The interpreting radiologist is fully responsible for the content of the report
--- NOTE | 2022-02-26 13:49 | RAD REPORT ---
EXAM DESCRIPTION: US - Extremity Venous Uni Ltd - 02/26/2022 12:03 am CLINICAL HISTORY: PAIN Extremity Venous Uni Ltd COMPARISON: None. TECHNIQUE: Grayscale, color Doppler, and spectral Doppler imaging of the right lower extremity venou s system. FINDINGS: Normal compressibility and flow identified in the right common femoral, superficial femora l, popliteal, and visualized calf veins. No echogenic thrombus identified. No soft tissue abnormaliti es. Respiratory phasicity in the common femoral veins. IMPRESSION: No evidence of right lower extremity DVT. Electronically signed by: Troy Singh 02/25/2022 11:41 PM CDT Due to temporary technical issues with the PACS/Fluency reporting system, reports are being signed by the in house radiologists without review as a courtesy to insure prompt reporting. The interpreting radiologist is fully responsible for the content of the report
== END 2022-02-25 23:50 | disposition home or self-care (01) ==
LOC: ER 20:47
DX: M25.561 Pain in right knee (principal); M25.571 Pain in right ankle and joints of right foot; F17.210 Nicotine dependence, cigarettes, uncomplicated
CPT/HCPCS: 93971; 99284

== ENCOUNTER 2022-05-21 19:35 | Emergency (ER) | payer SELFPAY ==
--- NOTE | 2022-05-21 22:34 | EDPHYS ---
Physician Documentation [facility] Name: Nerissa Lam Age: 41 yrs Sex: Female : 1980 Arrival Date: 05/21/2022 Time: 19:37 Bed Waiting Private MD: ED Physician Siddharth Kruger HPI: 05/22 00:46 This 41 yrs old Female presents to ER via Ambulatory with complaints of Cough, Achy. kb 00:46 The patient or guardian reports cough, that is intermittent, described as mild, flu kb symptoms, myalgias. Onset: The symptoms/episode began/occurred 2 day(s) ago. Severity of symptoms: At their worst the symptoms were mild, in the emergency department the symptoms are unchanged. Modifying factors: The symptoms are alleviated by nothing, the symptoms are aggravated by nothing. Associated signs and symptoms: The patient has no apparent associated signs or symptoms. The patient has not experienced similar symptoms in the past. The patient has not recently seen a physician. Pt reports cough, malaise, chills and bodyaches for 2 days. Historical: - Allergies: 05/21 20:04 No Known Allergies; hb - PMHx: 20:04 None; hb - PSHx: 20:04 section; hb - Immunization history:: Client reports having NOT received the Covid vaccine. - Social history:: Smoking status: Patient denies any tobacco usage or history of. ROS: 05/22 00:46 Abdomen/GI: Negative for abdominal pain, nausea, vomiting, diarrhea, and constipation. kb Constitutional: Positive for body aches, chills, fatigue, malaise. Respiratory: Positive for cough. All other systems are negative. Exam: 00:46 Constitutional: This is a well developed, well nourished patient who is awake, alert, kb and in no acute distress. Head/Face: Normocephalic, atraumatic. ENT: Moist Mucous membranes Cardiovascular: Regular rate and rhythm with a normal S1 and S2. No gallops, murmurs, or rubs. No pulse deficits. Respiratory: Respirations even and unlabored. No increased work of breathing. Talking in full sentences Abdomen/GI: Soft, non-tender. No distention Skin: Warm, dry with normal turgor. Normal color. MS/ Extremity: Pulses equal, no cyanosis. Neurovascular intact. Full, normal range of motion. Neuro: Awake and alert, GCS 15, oriented to person, place, time, and situation. Moves all extremities. Normal gait. Psych: Awake, alert, with orientation to person, place and time. Behavior, mood, and affect are within normal limits. Vital Signs: 05/21 20:02 BP 125 / 79; Pulse 100; Resp 18; Temp 98.0; Pulse Ox 100% ; Weight 95.25 kg; Height 5 hb ft. 1 in. (154.94 cm); Pain 8/10; 20:02 Body Mass Index 39.68 (95.25 kg, 154.94 cm) hb MDM: 20:08 Patient medically screened. kb 05/22 00:46 Data reviewed: vital signs, nurses notes. Data interpreted: Pulse oximetry: on room air kb is 100 %. Interpretation: normal. Counseling: I had a detailed discussion with the patient and/or guardian regarding: the historical points, exam findings, and any diagnostic results supporting the discharge/admit diagnosis, lab results, the need for outpatient follow up, a family practitioner, to return to the emergency department if symptoms worsen or persist or if there are any questions or concerns that arise at home. 05/21 20:06 Order name: Flu; Complete Time: 21:56 kb 05/21 20:06 Order name: COVID-19 SARS RT PCR (Document "Date of Onset" if Symptomatic); Complete kb Time: 22:32 Administered Medications: No medications were administered Disposition: 04:24 Co-signature as Attending Physician, Siddharth Kruger MD. rn Disposition Summary: 05/21/22 22:33 Discharge Ordered Location: Home kb Condition: Stable kb Diagnosis - Coronavirus infection, unspecified kb Followup: kb - With: Emergency Department - When: As needed - Reason: Worsening of condition Followup: kb - With: Private Physician - When: 2 - 3 days - Reason: Recheck today's complaints, Continuance of care, Re-evaluation by your physician Discharge Instructions: - Discharge Summary Sheet kb - Viral Respiratory Infection, [id number] kb - COVID-19 kb Forms: - Medication Reconciliation Form kb - Thank You Letter kb - Antibiotic Education kb - Prescription Opioid Use kb Signatures: Dispatcher [employer] EDMS [place], TEST SKEIN WINDER-C IRISH-Ckb KrugerSiddharth ward MD MD rn Baxter, Heather, CARRIE RN hb
--- NOTE | 2022-05-21 22:34 | ER ---
Nurse's Notes [facility] Name: Nerissa Lam Age: 41 yrs Sex: Female : 1980 Arrival Date: 05/21/2022 Time: 19:37 Bed Waiting Private MD: Diagnosis: Coronavirus infection, unspecified Presentation: 05/21 20:02 Chief complaint: Body aches, chills, cough, and malaise x 2 days. Denies fever. hb Coronavirus screen: Client presents with at least one sign or symptom that may indicate coronavirus-19. Standard/surgical mask placed on the client. Provider contacted for isolation considerations. Ebola Screen: No symptoms or risks identified at this time. Initial Sepsis Screen: Does the patient meet any 2 criteria? No. Patient's initial sepsis screen is negative. Does the patient have a suspected source of infection? No. Patient's initial sepsis screen is negative. Risk Assessment: Do you want to hurt yourself or someone else? Patient reports no desire to harm self or others. Onset of symptoms was May 20, 2022. 20:02 Method Of Arrival: Ambulatory hb 20:02 Acuity: VIKKI 4 hb Historical: - Allergies: 20:04 No Known Allergies; hb - PMHx: 20:04 None; hb - PSHx: 20:04 section; hb - Immunization history:: Client reports having NOT received the Covid vaccine. - Social history:: Smoking status: Patient denies any tobacco usage or history of. Vital Signs: 20:02 BP 125 / 79; Pulse 100; Resp 18; Temp 98.0; Pulse Ox 100% ; Weight 95.25 kg; Height 5 hb ft. 1 in. (154.94 cm); Pain 8/10; 20:02 Body Mass Index 39.68 (95.25 kg, 154.94 cm) hb ED Course: 19:37 Patient arrived in ED. bp1 19:38 [facility]. kb 19:38 Siddharth Kruger MD is Attending Physician. kb 20:04 Triage completed. hb 20:04 Arm band placed on. hb 22:29 Notified Nurse Practitioner and/or Physician Slip Filler of a critical lab result(s), bb Covid positive Daisy Hill APPLIED EXERCISE PHYSIOLOGIST notified. 22:36 Destiny Lundberg, RN is Primary Nurse. hb Administered Medications: No medications were administered Outcome: 22:33 Discharge ordered by . kb 22:36 Patient left the ED. hb Signatures: Daisy Hill FNP-C FNP-Ckb Ballard, Brenda, RN RN bb Destiny Lundberg, RN RN [facility]
[2022-05-21 23:05] VITALS: BP 125/79; TEMP 98; O2SAT 100
== END 2022-05-21 22:36 | disposition home or self-care (01) ==
LOC: ER 19:35
DX: U07.1 COVID-19 (principal)
CPT/HCPCS: 87804; 99281; U0003

== ENCOUNTER 2022-05-25 10:22 | Emergency (ER) | payer SELFPAY ==
--- OUTSIDE RECORDS SUMMARY | 2022-05-25 10:24 | XMS REPORT | Continuity of Care Document ---
:1980 Author Organization [facility] t Address [address] [place] [address] Care Team Providers Name Role Phone Yenifer, [...] U 2020-0 [facility] Allergie 04-20 [facility] s 00:00: d 00 [facility] No Known DA Active U 2020-0 [facility] Allergie 04-20 [facility] s 00:00: d 00 [facility] Medications This patient has no known medications. Procedures This patient has no known procedures. Encounters Start End Encounter Admission Attending Care Care Encounter Source Date/Time Date/Time Type Type Clinicians Facility Department ID 2020-04-20 Inpatient [facility] FRANDY [id number] [facility] 01:50:00 [id number] [facility] 2021-03-23 2021-03-23 Emergency EM Yenifer, RODRÍGUEZMN FRANDY [id number] [facility] 15:59:00 20:56:00 Marina [id number] [facility] Results This patient has no known results.
--- NOTE | 2022-05-25 11:40 | EDPHYS ---
Physician Documentation [facility] Name: Nerissa Lam Age: 41 yrs Sex: Female : 1980 Arrival Date: 05/25/2022 Time: 10:29 Bed 11 Private MD: ED Physician Siddharth Kruger HPI: 05/25 11:33 This 41 yrs old Female presents to ER via Unassigned with complaints of Cough. rn 11:33 The patient or guardian reports cough. Onset: The symptoms/episode began/occurred 1 rn week(s) ago. Severity of symptoms: At their worst the symptoms were moderate, in the emergency department the symptoms have improved. Modifying factors: The symptoms are alleviated by nothing, the symptoms are aggravated by nothing. Associated signs and symptoms: Pertinent positives: rhinorrhea, Pertinent negatives: fever. The patient has not experienced similar symptoms in the past. The patient has been recently seen at the [facility] Emergency Department. Pt states seen here recently for cough, thought had COVID, COVID test sent but patient did not wait for results. States that was never notified of result. Feels much better but needs result for work. Denies sob or chest pain.. Historical: - Allergies: 11:30 No Known Allergies; aa5 - Home Meds: 11:30 None [Active]; aa5 - PMHx: 11:30 None; aa5 - PSHx: 11:30 section; aa5 - Immunization history:: Adult Immunizations unknown. - Social history:: Smoking status: Patient reports the use of cigarette tobacco products, smokes one-half pack cigarettes per day. - Family history:: not pertinent. - Hospitalizations: : No recent hospitalization is reported. ROS: 11:33 Constitutional: Negative for fever, chills, and weight loss, Eyes: Negative for injury, rn pain, redness, and discharge, ENT: + nasal congestion Neck: Negative for injury, pain, and swelling, Cardiovascular: Negative for chest pain, palpitations, and edema, Respiratory: + cough, neg for sob Abdomen/GI: Negative for abdominal pain, nausea, vomiting, diarrhea, and constipation, MS/Extremity: Negative for injury and deformity, Skin: Negative for injury, rash, and discoloration, Neuro: Negative for headache, weakness, numbness, tingling, and seizure. Exam: 11:33 Constitutional: This is a well developed, well nourished patient who is awake, alert, rn and in no acute distress. Ambulatory to room without difficulty or requiring assistance. Cardiovascular: Regular rate and rhythm. No pulse deficits. Respiratory: No increased work of breathing, no retractions or nasal flaring. Skin: Warm, dry with normal turgor. Normal color with no rashes, no lesions, and no evidence of cellulitis. MS/ Extremity: Pulses equal, no cyanosis. Neurovascular intact. Full, normal range of motion. Equal circumference. Neuro: Awake and alert, GCS 15 Vital Signs: 11:30 BP 106 / 89; Pulse 78; Resp 16 S; Temp 97.8(TE); Pulse Ox 98% on R/A; Weight 95.25 kg aa5 (R); Height 5 ft. 1 in. (154.94 cm) (R); 11:30 Body Mass Index 39.68 (95.25 kg, 154.94 cm) aa5 MDM: 11:33 Differential Diagnosis: Upper Respiratory Infection Other COVID. Data reviewed: vital rn signs, nurses notes, old medical records, and as a result, I will discharge patient. 11:38 Counseling: I had a detailed discussion with the patient and/or guardian regarding: the rn historical points, exam findings, and any diagnostic results supporting the discharge/admit diagnosis, the need for outpatient follow up, to return to the emergency department if symptoms worsen or persist or if there are any questions or concerns that arise at home. Special discussion: I discussed with the patient/guardian in detail that at this point there is no indication for admission to the hospital. It is understood, however, that if the symptoms persist or worsen the patient needs to return immediately for re-evaluation. ED course: COVID test +, printed and given to patient, feels better, just came for result. Will dc home with return precautions.. 11:39 Patient medically screened. rn Administered Medications: No medications were administered Disposition Summary: 05/25/22 11:39 Discharge Ordered Location: Home rn Problem: new rn Symptoms: have improved rn Condition: Stable rn Diagnosis - SARS-associated coronavirus as the cause of diseases classified elsewhere rn Followup: rn - With: Private Physician - When: As needed - Reason: Recheck today's complaints, Re-evaluation by your physician Discharge Instructions: - Discharge Summary Sheet rn - COVID-19 rn - Things to Know about the COVID-19 Pandemic - [facility] rn - Viral Illness, Adult rn - Prevent the Spread of COVID-19 if You Are Sick - [facility] rn Forms: - Medication Reconciliation Form rn - Thank You Letter rn - Antibiotic rn admit - Prescription Opioid Use rn - Work release form aa5 Signatures: Dispatcher [employer] Siddharth Parnell MD MD rn Calderon, Audri RN RN aa5
--- NOTE | 2022-05-25 11:52 | ER ---
Nurse's Notes [facility] Name: Nerissa Lam Age: 41 yrs Sex: Female : 1980 Arrival Date: 05/25/2022 Time: 10:29 Bed 11 Private MD: Diagnosis: SARS-associated coronavirus as the cause of diseases classified elsewhere Presentation: 05/25 11:30 Chief complaint: Patient states: cough that began May 21. aa5 11:30 Coronavirus screen: cough unrelated to allergies. Ebola Screen: Patient denies travel aa5 to an Ebola-affected area in the 21 days before illness onset. Initial Sepsis Screen: Does the patient meet any 2 criteria? No. Patient's initial sepsis screen is negative. Does the patient have a suspected source of infection? No. Patient's initial sepsis screen is negative. Risk Assessment: Do you want to hurt yourself or someone else? Patient reports no desire to harm self or others. Onset of symptoms was May 21, 2022. 11:30 Acuity: VIKKI 5 aa5 11:30 Method Of Arrival: Ambulatory aa5 Historical: - Allergies: 11:30 No Known Allergies; aa5 - Home Meds: 11:30 None [Active]; aa5 - PMHx: 11:30 None; aa5 - PSHx: 11:30 section; aa5 - Immunization history:: Adult Immunizations unknown. - Social history:: Smoking status: Patient reports the use of cigarette tobacco products, smokes one-half pack cigarettes per day. - Family history:: not pertinent. - Hospitalizations: : No recent hospitalization is reported. Screenin:44 Abuse screen: Denies threats or abuse. Nutritional screening: No deficits noted. aa5 Tuberculosis screening: No symptoms or risk factors identified. Fall Risk None identified. Assessment: 11:44 General: Appears comfortable, Behavior is calm, cooperative. Pain: Denies pain. Neuro: aa5 Level of Consciousness is awake, alert, obeys commands, Oriented to person, place, time, situation. Cardiovascular: Heart tones S1 S2 present Rhythm is regular. Respiratory: Reports cough Airway is patent Respiratory effort is even, unlabored, Respiratory pattern is regular, symmetrical, Breath sounds are clear bilaterally. GI: No signs and/or symptoms were reported involving the gastrointestinal system. : No signs and/or symptoms were reported regarding the genitourinary system. EENT: No signs and/or symptoms were reported regarding the EENT system. Derm: Skin is pink, warm \T\ dry. Musculoskeletal: Range of motion: intact in all extremities. Vital Signs: 11:30 BP 106 / 89; Pulse 78; Resp 16 S; Temp 97.8(TE); Pulse Ox 98% on R/A; Weight 95.25 kg aa5 (R); Height 5 ft. 1 in. (154.94 cm) (R); 11:30 Body Mass Index 39.68 (95.25 kg, 154.94 cm) aa5 ED Course: 10:29 Patient arrived in ED. mr 10:41 Siddharth Kruger MD is Attending Physician. rn 11:30 Arm band placed on. aa5 11:44 Liseth Prater, RN is Primary Nurse. aa5 11:44 Patient has correct armband on for positive identification. aa5 11:46 Triage completed. aa5 11:50 No provider procedures requiring assistance completed. Patient did not have IV access aa5 during this emergency room visit. Administered Medications: No medications were administered Medication: 11:51 VIS not applicable for this client. aa5 Outcome: 11:39 Discharge ordered by . rn 11:50 Discharged to home ambulatory, with family. aa5 11:50 Condition: good 11:50 Discharge instructions given to patient, Instructed on discharge instructions, follow up and referral plans. Demonstrated understanding of instructions, follow-up care. 11:51 Patient left the ED. aa5 Signatures: Orestes Clara mr Siddharth Kruger MD MD rn Calderon, Audri, RN RN aa5
[2022-05-25 11:56] VITALS: BP 106/89; TEMP 97.8; O2SAT 98
== END 2022-05-25 11:51 | disposition home or self-care (01) ==
LOC: ER 10:22
DX: U07.1 COVID-19 (principal); F17.210 Nicotine dependence, cigarettes, uncomplicated
CPT/HCPCS: 99281

== ENCOUNTER 2024-05-09 23:27 | Emergency (ER) | payer SELFPAY ==
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
[2024-05-09] MEDS ORDERED: FAMOTIDINE 20 MG/2 ML VIAL IV ONE (23:33)
[2024-05-09] MEDS ORDERED: DIPHENHYDRAMINE 50 MG/ML VIAL ONE (23:33)
[2024-05-09] MEDS ORDERED: EPINEPHRINE 1 MG/ML VIAL ONE (23:33)
[2024-05-09] MEDS ORDERED: METHYLPREDNISOLONE 125 MG INJ ONE (23:33)
[2024-05-10] MEDS ORDERED: NA CHLORIDE 0.9% 1,000 ML ONE (00:06)
--- NOTE | 2024-05-10 01:03 | ER ---
Nurse's Notes [facility] Name: Nerissa Lam Age: 43 yrs Sex: Female : 1980 Arrival Date: 05/09/2024 Time: 23:27 Bed 4 Private MD: Diagnosis: Upper respiratory tract hypersensitivity reaction, site unspecified Presentation: 05/09 23:49 Coronavirus screen: Vaccine status: Patient reports being unvaccinated. ha1 23:50 Chief complaint: Patient states: ate [employer] que with seasoning and had a reaction. Ebola vc1 Screen: Patient negative for fever greater than or equal to 101.5 degrees Fahrenheit, and additional compatible Ebola Virus Disease symptoms Patient denies exposure to infectious person. Patient denies travel to an Ebola-affected area in the 21 days before illness onset. No symptoms or risks identified at this time. Onset: The symptoms/episode began/occurred suddenly, just prior to arrival. Anaphylaxis evaluation, the patient reports or I have noted the following symptoms which indicate a significant risk of anaphylaxis: shortness of breath No signs of anaphylaxis noted. Initial Sepsis Screen: Does the patient meet any 2 criteria? No. Patient's initial sepsis screen is negative. Does the patient have a suspected source of infection? No. Patient's initial sepsis screen is negative. Risk Assessment: Do you want to hurt yourself or someone else? Patient reports no desire to harm self or others. Note Pt states she is SOB and throat is "scratchy", and is itching all over. Pt lungs sound clear, airway patent no signs of anaphylaxis noted. While medications being administered Pt asked if pt could get a work note to have a day off. Onset of symptoms was May 09, 2024. 23:50 Method Of Arrival: Ambulatory vc1 23:50 Acuity: VIKKI 4 vc1 Triage Assessment: 23:31 General: Appears uncomfortable, Behavior is anxious. Pain: Denies pain. EENT: Oral ha1 mucosa is moist. Throat is clear. Neuro: Level of Consciousness is awake, alert, obeys commands, Oriented to person, place, time, situation. Cardiovascular: Capillary refill < 3 seconds Patient's skin is warm and dry. Respiratory: Reports DIFFICULTY BREATHING DUE TO ALLERGIC REACTION Airway is patent Respiratory effort is even, unlabored, Respiratory pattern is regular, symmetrical. Derm: Skin is pink, warm \\T\\ dry. Reports itching. SAMPLE HAND: 23:55 LMP N/A - Irregular menses, Not vc1 Historical: - Allergies: 23:55 No Known Allergies; vc1 - Home Meds: 23:55 None [Active]; vc1 - PMHx: 23:55 None; vc1 - PSHx: 23:55 section; vc1 - Immunization history:: Adult Immunizations up to date. - Infectious Disease History:: Denies. - Social history:: Smoking status: Patient reports the use of cigarette tobacco products, smokes one pack cigarettes per day. Screenin:48 [facility] ED Fall Risk Assessment (Adult) History of falling in the last 3 months, ha1 including since admission No falls in past 3 months (0 pts) Confusion or Disorientation No (0 pts) Intoxicated or Sedated No (0 pts) Impaired Gait No (0 pts) Mobility Assist Device Used No (0 pt) Altered Elimination No (0 pt) Score/Fall Risk Level 0 - 2 = Low Risk Oriented to surroundings, Maintained a safe environment, Educated pt \\T\\ family on fall prevention, incl call for assistance when getting out of bed, Hourly rounding (assess needs \\T\\ fall precautionary measures) done. Abuse screen: Denies threats or abuse. Denies injuries from another. Nutritional screening: No deficits noted. Tuberculosis screening: No symptoms or risk factors identified. Assessment: 23:31 Reassessment: SEE TRIAGE ASSESSMENT. ha1 05/10 00:00 Reassessment: Patient and/or family updated on plan of care and expected duration. Pain ha1 level reassessed. Patient is alert, oriented x 3, equal unlabored respirations, skin warm/dry/pink. Patient denies pain at this time. Patient states feeling better. Patient states symptoms have improved. 01:21 Reassessment: Patient appears in no apparent distress at this time. Patient and/or tm6 family updated on plan of care and expected duration. Pain level reassessed. Patient is alert, oriented x 3, equal unlabored respirations, skin warm/dry/pink. Respiratory: Airway is patent Respiratory effort is even, unlabored, Respiratory pattern is regular, symmetrical, Breath sounds are clear. Vital Signs: 05/09 23:50 BP 129 / 59; Pulse 86; Resp 20; Temp 98; Pulse Ox 98% ; Weight 99.34 kg; Height 5 ft. 1 vc1 in. ; Pain 0/10; 05/10 01:21 BP 120 / 58; Pulse 86; Resp 19; Temp 96.9(TE); Pulse Ox 95% on R/A; Pain 0/10; tm6 05/09 23:50 Body Mass Index 41.38 (99.34 kg, 154.94 cm) vc1 05/09 23:50 Pain Scale: Adult vc1 05/10 01:21 Pain Scale: Adult tm6 ED Course: 05/09 23:21 Provided Education on: use of call salazar. Client placed on continuous cardiac and pulse tm6 oximetry monitoring. NIBP monitoring applied. Pulse ox on. NIBP on. Door closed. Noise minimized. Warm blanket given. 23:29 Patient arrived in ED. gm2 23:31 Patient has correct armband on for positive identification. Placed in gown. Bed in low ha1 position. Call light in reach. Side rails up X2. Adult w/ patient. 23:31 Inserted saline lock: 20 gauge in right hand, using aseptic technique. ha1 23:33 Karo Thornton PA-C is PHCP. sb4 23:33 Shane Wolfe MD is Attending Physician. sb4 23:55 Triage completed. vc1 23:56 Arm band placed on right wrist. vc1 05/10 01:22 No provider procedures requiring assistance completed. IV discontinued, intact, tm6 bleeding controlled, No redness/swelling at site. Pressure dressing applied. Administered Medications: 05/09 23:35 Drug: Famotidine IVP 20 mg IVP once; dilute with 10 mL 0.9% NaCl; give over 2 minutes ha1 Route: IVP; Site: right hand; 23:37 Drug: diphenhydrAMINE IVP 50 mg IVP once Route: IVP; Site: right hand; ha1 23:42 Drug: MethylPrednisoLONE IVP 125 mg IVP once Route: IVP; Site: right hand; ha1 05/10 00:13 Drug: NS 0.9% IV 1000 ml IV at 1 bolus Per protocol; 1000 mL bolus Route: IV; Rate: 1 ha1 bolus; Site: right hand; Medication: 01:23 VIS not applicable for this client. tm6 Outcome: 01:03 Discharge ordered by . sb4 01:22 Discharged to home ambulatory, with family, tm6 01:22 Condition: stable 01:22 Discharge instructions given to patient, family, Instructed on discharge instructions, follow up and referral plans. medication usage, Demonstrated understanding of instructions, follow-up care, medications, Prescriptions given X 1, :23 Patient left the ED. tm6 Signatures: Rose Conte RN RN vc1 Leigh Nunn RN RN ha1 Karo Thornton PAWilliams PAWilliams carreno4 Jewell Spann 2 Jerrod Soria RN RN tm6
--- NOTE | 2024-05-10 01:03 | EDPHYS ---
Physician Documentation [facility] Name: Nerissa Lam Age: 43 yrs Sex: Female : 1980 Arrival Date: 05/09/2024 Time: 23:27 Bed 4 Private MD: ED Physician Shane Wolfe HPI: 05/09 23:37 This 43 yrs old Female presents to ER via Unassigned with complaints of Allergic sb4 Reaction, Breathing Difficulty. 23:59 ate something at a barbecue this evening, went to bed shortly after, woke up with sb4 diffuse itching and difficulty breathing. denies any known allergies but states something similar has happened in the past with unknown seasonings. has not taken any medications prior. 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 - Infectious Disease History:: Denies. - Social history:: Smoking status: Patient reports the use of cigarette tobacco products, smokes one pack cigarettes per day. ROS: 23:59 Constitutional: Negative for fever, chills, and weight loss, sb4 23:59 ENT: Positive for throat swelling, 23:59 Respiratory: Positive for shortness of breath, 23:59 Skin: Positive for itching, 23:59 All other systems are negative, Exam: 23:59 Head/Face: Normocephalic, atraumatic. Eyes: Extra-ocular motions intact. Periorbital sb4 areas with no swelling, redness, or edema. ENT: Mucous membranes moist. Cardiovascular: Regular rate and rhythm with a normal S1 and S2. Respiratory: Lungs have equal breath sounds bilaterally, clear to auscultation and percussion. No rales, rhonchi or wheezes noted. No increased work of breathing, no retractions or nasal flaring. Abdomen/GI: Soft, non-tender, no distension. Skin: Warm, dry with normal turgor. Normal color with no rashes, no lesions, and no evidence of cellulitis. MS/ Extremity: Pulses equal, no cyanosis. Neurovascular intact. Full, normal range of motion. 23:59 Constitutional: The patient appears alert, awake, in obvious distress, mildly distressed, uncomfortable, Vital Signs: 23:50 BP 129 / 59; Pulse 86; Resp 20; Temp 98; Pulse Ox 98% ; Weight 99.34 kg; Height 5 ft. 1 vc1 in. ; Pain 0/10; 05/10 01:21 BP 120 / 58; Pulse 86; Resp 19; Temp 96.9(TE); Pulse Ox 95% on R/A; Pain 0/10; tm6 05/09 23:50 Body Mass Index 41.38 (99.34 kg, 154.94 cm) vc1 05/09 23:50 Pain Scale: Adult vc1 05/10 01:21 Pain Scale: Adult tm6 MDM: 05/09 23:37 Patient medically screened. sb4 05/10 01:02 Data reviewed: vital signs, nurses notes, and as a result, I will discharge patient. sb4 Counseling: I had a detailed discussion with the patient and/or guardian regarding the historical points, exam findings, and any diagnostic results supporting the discharge/admit diagnosis, to return to the emergency department if symptoms worsen or persist or if there are any questions or concerns that arise at home. 05/09 23:37 Order name: IV Start; Complete Time: 23:44 sb4 Administered Medications: 05/09 23:35 Drug: Famotidine IVP 20 mg IVP once; dilute with 10 mL 0.9% NaCl; give over 2 minutes ha1 Route: IVP; Site: right hand; 23:37 Drug: diphenhydrAMINE IVP 50 mg IVP once Route: IVP; Site: right hand; ha1 23:42 Drug: MethylPrednisoLONE IVP 125 mg IVP once Route: IVP; Site: right hand; ha1 05/10 00:13 Drug: NS 0.9% IV 1000 ml IV at 1 bolus Per protocol; 1000 mL bolus Route: IV; Rate: 1 ha1 bolus; Site: right hand; Disposition: 04:19 Co-signature as Attending Physician, Shane Wolfe MD I agree with the assessment and ari plan of care. Disposition Summary: 05/10/24 01:03 Discharge Ordered Notes: Location: Home sb4 Problem: new sb4 Symptoms: have improved sb4 Condition: Stable sb4 Diagnosis - Upper respiratory tract hypersensitivity reaction, site unspecified sb4 Followup: sb4 - With: Emergency Department - When: As needed - Reason: Trouble breathing, Worsening of condition Discharge Instructions: - Discharge Summary Sheet sb4 - Food Allergy, Mexf-ev-Enpc sb4 Forms: - Work release form sb4 - Patient Portal Instructions sb4 - Leadership Thank You Letter sb4 Prescriptions: - epinephrine 0.15 mg/0.3 mL Injection Auto-Injector - administer 0.3 milliliter INTRAMUSCULAR route every 15 minutes as needed for sb4 anaphylaxis; do not exceed 3 doses per episode; 3 Applicator; Refills: 0, Product Selection Permitted Signatures: Shane Wolfe MD MD cha Calcote, Vanessa RN RN 1 Leigh Nunn RN RN ha1 Karo Thornton PA-C PA-C sb4
[2024-05-10 02:10] VITALS: BP 120/58; TEMP 96.9; O2SAT 95
== END 2024-05-10 01:23 | disposition home or self-care (01) ==
LOC: ER 23:27
DX: J06.9 Acute upper respiratory infection, unspecified (principal)
CPT/HCPCS: 96374; 96375; 99284; J0171; J1200; J2919; J7030

== ENCOUNTER 2024-09-12 09:20 | Emergency (ER) | payer OTHER ==
--- OUTSIDE RECORDS SUMMARY | 2024-09-12 09:22 | XMS REPORT | Continuity of Care Document ---
Author Name Unknown Address [address] [facility] [address] [place] [address] [facility]connect Address [address] [facility] [place] [address] Care Team Providers Care Manager Surgical Name Role Phone [address] Attending Clinician Unavailable Physician, No Primary or Family Admitting Clinic imani Unavailable Payers Payer Name Policy Type Policy Number Effective Date Expirati on Date Source Allergies, Adverse Reactions, Alerts Allergy Name Allergy Type Status Severity Reaction(s) Onset Date Inactive Date Treating Clinician Comments Source No Known Allergie s DA Active U 04-20 00:00: 00 [facility] No Known Allergie s DA Active U 04-20 00:00: 00 [facility] Encounters Start Date/Time End Date/Time Encounter Type Admission Type Attending Clinicians Care Facility Care Department Encounter ID Source 2020-04-20 01:50:00 Inpatient [facility] [id number] 29 [facility] 2021-03-23 15:59:00 2021-03-23 20:56:[address] [facility] [id number] 52 [facility] Notes Date/Time Note Provider Source 2020-04-20 02:09:00 [facility] EMERGENCY PROVIDER REPORT REPORT#:[id number] REPORT STATUS: Signed DATE:04/20/20 TIME: 0209 PATIENT: PEDRO,JAS UNIT #: [id number] ROOM/BED: AGE: 39 SEX: F PCP PHYS: No Primary or Family Physician SERVICE AUTHOR: Cindy Virgen MD * ALL edits or amendments must be made on the electronic/computer document * HPI-Eye Problem General Confirmed Patient Yes Initial Greet Date/Time 04/20/20158 Presentation Chief Complaint Both eyes affected Hx Obtained From Patient Free Text HPI Notes Free Text HPI Notes Patient is a 39-year-old female with no past [...] Benadryl and calamine lotion. Risk-Eye Problem Risk Stratification )( Eye Injury - Adult Risk factors reviewed Review of Systems ROS Statements All systems rev neg except as marked. Free Text ROS Notes Free Text ROS Notes Constitutional: Denies Fever, chills Eyes: Positive bilateral eye pain, erythema of both eyes, watering of both eyes, slight blurry vision Ears/nose/throat: Denies nasal congestion, sinus problem, and sore throat GI: Denies abdominal pain, nausea, diarrhea, hematemesis, hematochezia, and melena Musculoskeletal: Denies back pain, neck pain, extremity pain Skin: Positive rash from poison wade to bilateral upper extremities and lower extremities. Denies diaphoresis, erythema Neurologic: Denies dizziness, syncope, headache, focal weakness Respiratory: Denies shortness of breath, wheezing, cough, hemoptysis Cardiovascular: Denies chest pain, edema, palpitations, syncope : Denies dysuria, hematuria, urinary frequency, urinary urgency Past Medical History - Adult Stated Complaint BEDBUG SPRAY IN EYE Allergies Coded Allergies: No Known Allergies (04/20/20) Smoking status for patients 13 years old or older: Current every day smoker Physical Exam Vital Signs Vital Signs First Documented: Result Date Time Pulse Ox 100 04/20 151 B/P 150/90 06/17 0151 B/P Mean 110 04/20 0151 O2 Delivery Room air 04/20 0151 Temp 36.3 04/20 0151 Pulse 83 04/20 0151 Resp 20 04/20 015 Last Documented: Result Date Time Pulse Ox 98 04/20 0305 B/P 140/97 04/20 0305 B/P Mean 111 04/20 0305 O2 Delivery Room air 04/20 0305 Temp 36.7 04/20 0305 Pulse 96 04/20 0305 Resp 18 04/20 0305 Review of Vital Signs Reviewed Free Text PE Notes Free Text PE Notes General/Const Awake, Alert, No acute distress, well appearing, well-developed, cooperative, nontoxic appearance MS Head Normocephalic, Atraumatic Eyes EMS actively irrigating eyes with normal saline. PERRL, EOMI, positive photophobia, positive injected conjunctiva bilaterally, positive watery eyes, positive erythema of left upper and lower eyelids; OS 20/30, OD 20/15; pH 6 of bilat eyes Ears/Nose/Throat Airway patent, Mucous membranes moist, Pharynx NL, No sinus tenderness MS Neck Supple, No meningismus, Full range of motion, No swelling, Non-tender, No masses Resp/Chest Breath sounds NL, Breath sounds = bilat, No respiratory distress, No rales, No rhonchi, No wheezing Cardiovascular Heart rate NL, Regular rhythm, Heart sounds NL, Peripheral circulation NL Abdomen/GI Soft, Non-tender, No guarding, No rebound Skin Color NL, positive rash consisting of small vesicles on erythematous base and some crusting of vesicles on patient's distal bilateral upper extremities and lower extremities; skin Warm, Dry, Turgor NL Neurologic Oriented X3, Speech NL, No motor deficits, No sensory deficits, CN II - XII intact, Cerebellar NL Psychiatric Affect NL, Mood NL, Cognitive function NL, Thought content NL Procedures Slit Lamp Exam Time 0226 Procedure Performed by ED physician Which Eye Both eyes Eyelid/Conjunctiva/Sclera Tear film watery, Conjunctiva injected Cornea/Ant Chamber/Iris/Lens no fluoroscein uptake, no corneal abrasions, no foreign bodies Re-Evaluation MDM Re-Evaluation/Progress Re-Evaluation/Progress 1 Text/Dict Note Patient's eye pain was improved with tetracaine. Patient had no fluorescein uptake with the Pérez lamp. Janes lens was inserted and copious irrigation of eyes was resumed. Time of Re-Eval 225 Re-Eval Status Improved Re-Evaluation/Progress 2 Text/Dict Note pH is 7 for bilateral eyes on reexam. Patient states she feels better after the copious irrigation of bilateral eye with normal saline. Patient discussed all results, differential diagnosis, and treatment plan with patient. Physician instructed patient to follow-up with plate glass polisher and primary care doctor. Time of Re-Eval 025 Re-Eval Status Improved ED Course Medication(s) Ordered Medication(s) Ordered: Antihistamine Drugs Sig/Alan Start time Last Medication Dose Route Stop Time Status Admin Diphenhydramine HCl 50 MG X1ED STA 04/20 0244 DC 04/20 PO 04/20 0245 0250 Diagnostic Agents Sig/Alan Start time Last Medication Dose Route Stop Time Status Admin Fluorescein Sodium See Dose X1ED STA 04/20 0212 DC 04/20 Insts (1) EACH EYE 04/20 213 0231 Fluorescein Sodium See Dose X1ED STA 04/20 0212 DC 04/20 Insts (2) EACH EYE 04/20 0213 0231 Eye, Ear, Nose And Throat (Een Sig/Alan Start time Last Medication Dose Route Stop Time Status Admin Tetracaine HCl 1 DROP X1ED STA 04/20 0213 DC 04/20 EACH EYE 04/20 021 0230 Hormones And Synthetic Substit Sig/Alan Start time Last Medication Dose Route Stop Time Status Admin Prednisone 50 MG X1ED STA 04/20 0244 DC 04/20 PO 04/20 0245 0250 Dose Instructions: (1)Fluorescein Sodium: 1 STRIP TO LEFT EYE (2)Fluorescein Sodium: 1 STRIP TO LEFT EYE Patient Discharge Departure Vital Signs/Condition Vital Signs First Documented: Result Date Time Pulse Ox 100 04/20 0151 B/P 150/90 04/20 0151 B/P Mean 110 04/20 0151 O2 Delivery Room air 04/20 0151 Temp 36.3 04/20 0151 Pulse 83 04/20 0151 Resp 20 04/20 0151 Last Documented: Result Date Time Pulse Ox 98 04/20 0305 B/P 140/97 04/20 0305 B/P Mean 111 04/20 0305 O2 Delivery Room air 04/20 0305 Temp 36.7 04/20 0305 Pulse 96 04/20 0305 Resp 18 04/20 0305 All vital signs available at the time of this entry have been reviewed. Clinical Impression Clinical Impression Primary Impression: Chemical conjunctivitis of both eyes Secondary Impressions: Chemical injury of eye, Contact dermatitis due to poison wade Disposition Decision Discharge )( Discharged to Home Yes )( Time 0257 )( Date 04/20/20 Discharge/Care Plan Counseled Regarding Diagnosis, Prescriptions, Need for follow-up, When to return to ED Prescriptions tobramycin, naproxen, benadryl, prednisone, pepcid Prescriptions Reviewed Risks, Benefits Referrals No Primary or Family Physician (PCP/Family) Discharge Note I have spoken with the patient and/or caregivers. I have explained the patient's condition, diagnoses and treatment plan based on the information available to me at this time. I have answered the patient's and/or caregiver's questions and addressed any concerns. The patient and/or caregivers have as good an understanding of the patient's diagnosis, condition and treatment plan as can be expected at this point. The vital signs have been stable. The patient's condition is stable and appropriate for discharge from the emergency department. The patient will pursue further outpatient evaluation with the primary care physician or other designated or consulting physician as outlined in the discharge instructions. The patient and/or caregivers are agreeable to this plan of care and follow-up instructions have been explained in detail. The patient and/or caregivers have received these instructions in written format and have expressed an understanding of the discharge instructions. The patient and/or caregivers are aware that any significant change in condition or worsening of symptoms should prompt an immediate return to this or the closest emergency department or a call to 911. at [phone] [facility] #:[phone] END OF REPORT [facility]
[2024-09-12] MEDS ORDERED: dexAMETHasone 10 MG/ML VIAL ONE (09:39)
[2024-09-12] MEDS ORDERED: KETOROLAC 30 MG/ML INJ ONE (09:39)
[2024-09-12] MEDS ORDERED: DIAZEPAM 5 MG TABLET ONE (09:40)
[2024-09-12 10:01] LABS: Specific Gravity 1.028 (1.005-1.030); Urine Bilirubin NEGATIVE (Negative); Urine Blood 3+ (OVER) (Negative); Urine Clarity Extremely Turbid (Clear); Urine Color Brown (Yellow); Urine Glucose NEGATIVE (Negative); Urine Ketones TRACE (Negative); Urine Microscopic Reflex YN NO UMIC; Urine Nitrite NEGATIVE (Negative); Urine Protein 1+ (Negative); Urine Urobilinogen Normal (Normal); Urine pH 5.5 (5.0-7.0)
--- NOTE | 2024-09-12 10:09 | EDPHYS ---
Physician Documentation [facility] Name: Nerissa Lam Age: 44 yrs Sex: Female : 1980 Arrival Date: 09/12/2024 Time: 09:20 Bed 18 Private MD: ED Physician Troy Pool HPI: 09/12 09:27 This 44 yrs old Female presents to ER via Unassigned with complaints of Back Pain. kb 09:27 Pt is a 44 year old female who presents for left low back pain that radiates down left kb leg that started one month ago. Reports constant pain. aggravated by sitting and movement. . Historical: - Allergies: 09:41 No Known Allergies; hb - Home Meds: 09:41 None [Active]; hb - PMHx: 09:41 None; hb - PSHx: 09:41 section; hb - Immunization history:: Adult Immunizations up to date. - Infectious Disease History:: Denies. - Social history:: Smoking status: Patient reports the use of cigarette tobacco products, smokes one-half pack cigarettes per day. ROS: 09:28 Constitutional: As per HPI kb Exam: 09:28 Constitutional: This is a well developed, well nourished patient who is awake, alert, kb and in no acute distress. Head/Face: Normocephalic, atraumatic. ENT: Moist Mucous membranes Cardiovascular: Regular rate Respiratory: Respirations even and unlabored. No increased work of breathing. Talking in full sentences Skin: Warm, dry with normal turgor. Normal color. MS/ Extremity: Pulses equal, no cyanosis. Neurovascular intact. Full, normal range of motion. Neuro: Awake and alert, GCS 15, oriented to person, place, time, and situation. Vital Signs: 09:32 BP 117 / 87; Pulse 96; Resp 16; Temp 97.8(O); Pulse Ox 98% on R/A; Weight 104.33 kg; hb Height 5 ft. 1 in. ; Pain 8/10; 09:32 Body Mass Index 43.46 (104.33 kg, 154.94 cm) hb 09:32 Pain Scale: Adult hb MDM: 09:26 Medical Screening Exam initiated kb 09:28 Data reviewed: vital signs, nurses notes. kb 09/12 09:30 Order name: Urinalysis w/ reflexes; Complete Time: 10:06 kb Administered Medications: 09:32 CANCELLED (Physician Discretion): [id number] mg PO once kb 09:52 Drug: Dexamethasone IM 10 mg IM once Route: IM; Site: right deltoid; kc6 10:10 Follow up: Response: No adverse reaction kc6 09:52 Drug: Ketorolac IM 30 mg IM once Route: IM; Site: left deltoid; kc6 10:10 Follow up: Response: No adverse reaction; Pain is decreased kc6 09:52 Drug: Diazepam PO 5 mg PO once Route: PO; kc6 10:10 Follow up: Response: No adverse reaction; Pain is decreased; RASS: Alert and Calm (0) 6 Disposition: 11:00 Co-signature as Attending Physician, Troy Pool MD I reviewed the patient's care rt provided by the Advanced Practice Provider and agree with the diagnosis and treatment plan. Disposition Summary: 09/12/24 10:08 Discharge Ordered Notes: Location: Home kb Condition: Stable kb Diagnosis - Sciatica, left side kb Followup: kb - With: Emergency Department - When: As needed - Reason: Worsening of condition Followup: kb - With: Private Physician - When: 2 - 3 days - Reason: Recheck today's complaints, Continuance of care, Re-evaluation by your physician Discharge Instructions: - Discharge Summary Sheet kb - Sciatica, [id number] kb Forms: - Work release form kb - Medication Reconciliation Form kb - Antibiotic Education kb - Prescription Opioid Use kb - Patient Portal Instructions kb - Leadership Thank You Letter kb Prescriptions: - Diclofenac Sodium 75 mg Oral tablet, delayed release (enteric coated) - take 1 tablet ORAL route 2 times per day As needed; 30 tablet; Refills: 0, kb Product Selection Permitted - orphenadrine citrate 100 mg Oral Tablet Sustained Release - take 1 tablet ORAL route 2 times per day As needed; 20 tablet; Refills: 0, kb Product Selection Permitted Signatures: Dispatcher [employer] Daisy Nichole FNP-C FNP-Ckb Baxter, Heather RN China Craig RN RN kc6 Troy Pool MD MD rt Corrections: (The following items were deleted from the chart) 09:32 09:30 Cyclobenzaprine PO 10 mg PO once ordered. kb kb
--- NOTE | 2024-09-12 10:09 | ER ---
Nurse's Notes [facility] Name: Nerissa Lam Age: 44 yrs Sex: Female : 1980 Arrival Date: 09/12/2024 Time: 09:20 Bed 18 Private MD: Diagnosis: Sciatica, left side Presentation: 09/12 09:32 Chief complaint: Left low back pain that radiates to left leg x 1 month. Coronavirus hb screen: At this time, the client does not indicate any symptoms associated with coronavirus-19. Ebola Screen: No symptoms or risks identified at this time. Initial Sepsis Screen: Does the patient meet any 2 criteria? No. Patient's initial sepsis screen is negative. Does the patient have a suspected source of infection? No. Patient's initial sepsis screen is negative. Risk Assessment: Do you want to hurt yourself or someone else? Patient reports no desire to harm self or others. Onset of symptoms was August 2024. 09:32 Method Of Arrival: Ambulatory hb 09:32 Acuity: VIKKI 4 hb Historical: - Allergies: 09:41 No Known Allergies; hb - Home Meds: 09:41 None [Active]; hb - PMHx: 09:41 None; hb - PSHx: 09:41 section; hb - Immunization history:: Adult Immunizations up to date. - Infectious Disease History:: Denies. - Social history:: Smoking status: Patient reports the use of cigarette tobacco products, smokes one-half pack cigarettes per day. Screenin:53 [facility] ED Fall Risk Assessment (Adult) History of falling in the last 3 months, kc6 including since admission No falls in past 3 months (0 pts) Confusion or Disorientation No (0 pts) Intoxicated or Sedated No (0 pts) Impaired Gait No (0 pts) Mobility Assist Device Used No (0 pt) Altered Elimination No (0 pt) Score/Fall Risk Level 0 - 2 = Low Risk Oriented to surroundings. Abuse screen: Denies threats or abuse. Denies injuries from another. Nutritional screening: No deficits noted. Tuberculosis screening: No symptoms or risk factors identified. Assessment: 09:53 General: Appears in no apparent distress. comfortable, well groomed, well developed, kc6 Behavior is calm, cooperative, appropriate for age. Pain: Complains of pain in left low back and left leg Pain radiates to left leg. Neuro: Level of Consciousness is awake, alert, obeys commands, Oriented to person, place, time, situation, Appropriate for age. Cardiovascular: Capillary refill < 3 seconds. Respiratory: Airway is patent Trachea midline Respiratory effort is even, unlabored, Respiratory pattern is regular, symmetrical. GI: No signs and/or symptoms were reported involving the gastrointestinal system. : No signs and/or symptoms were reported regarding the genitourinary system. EENT: No signs and/or symptoms were reported regarding the EENT system. Derm: No signs and/or symptoms reported regarding the dermatologic system. Skin is intact, is healthy with good turgor, Skin is pink, warm \T\ dry. Musculoskeletal: Circulation, motion, and sensation intact. Capillary refill < 3 seconds, Range of motion: intact in all extremities. Vital Signs: 09:32 BP 117 / 87; Pulse 96; Resp 16; Temp 97.8(O); Pulse Ox 98% on R/A; Weight 104.33 kg; hb Height 5 ft. 1 in. ; Pain 8/10; 09:32 Body Mass Index 43.46 (104.33 kg, 154.94 cm) hb 09:32 Pain Scale: Adult hb ED Course: 09:25 Patient arrived in ED. mg5 09:26 Daisy Hill [facility]C [facility] kb 09:26 Troy Pool MD is Attending Physician. kb 09:34 China Chowdhury, CARRIE is Primary Nurse. kc6 09:41 Triage completed. hb 09:41 Arm band placed on. hb 09:52 Patient has correct armband on for positive identification. Bed in low position. Call kc6 light in reach. Side rails up X 1. Adult w/ patient. Pulse ox on. NIBP on. Door closed. Noise minimized. Lights dimmed. Pillow given. 09:52 Urinalysis w/ reflexes Sent. kc6 09:52 Patient maintains SpO2 saturation greater than 95% on room air. kc6 10:15 No provider procedures requiring assistance completed. Patient did not have IV access kc6 during this emergency room visit. Administered Medications: 09:32 CANCELLED (Physician Discretion): [id number] mg PO once kb 09:52 Drug: Dexamethasone IM 10 mg IM once Route: IM; Site: right deltoid; kc6 10:10 Follow up: Response: No adverse reaction kc6 09:52 Drug: Ketorolac IM 30 mg IM once Route: IM; Site: left deltoid; kc6 10:10 Follow up: Response: No adverse reaction; Pain is decreased kc6 09:52 Drug: Diazepam PO 5 mg PO once Route: PO; kc6 10:10 Follow up: Response: No adverse reaction; Pain is decreased; RASS: Alert and Calm (0) kc6 Medication: 10:15 VIS not applicable for this client. kc6 Outcome: 10:08 Discharge ordered by . kb 10:15 Discharged to home ambulatory, with significant other, kc6 10:15 Condition: good 10:15 Discharge instructions given to patient, significant other, Instructed on discharge instructions, follow up and referral plans. no drinking with medication, no driving heavy equipment, medication usage, Demonstrated understanding of instructions, follow-up care, medications, Prescriptions given X 2, 10:15 Patient left the ED. kc6 Signatures: Daisy Hill, IRISH-C [employer]-CkDestiny Vaca RN RN China Escobar RN RN [facility] Jessica Amanda [facility]
[2024-09-12 10:35] VITALS: BP 117/87; TEMP 97.8; O2SAT 98
== END 2024-09-12 10:15 | disposition home or self-care (01) ==
LOC: ER 09:20
DX: M54.32 Sciatica, left side (principal)
CPT/HCPCS: 81003; 96372; 99284; J1100

== ENCOUNTER 2024-10-09 19:02 | Emergency (ER) | payer OTHER ==
[2024-10-09] MEDS ORDERED: KETOROLAC 30 MG/ML INJ ONE (19:58)
[2024-10-09] MEDS ORDERED: HYDROCODONE/APAP 7.5/325 MG TAB ONE (19:58)
--- NOTE | 2024-10-09 21:54 | RAD REPORT ---
EXAMINATION: UPPER EXTREMITY VENOUS UNILATE CLINICAL INDICATION: Arm pain TECHNIQUE: Complete bilateral duplex sonography of the right upper extremity veins was performed. The examination included compression for vein patency, color Doppler imaging and flow augmentation in response to distal compression of the internal jugular,, subclavian, axillary, brachial, radial, ulna r, cephalic and basilic veins. .Grayscale, color and spectral analysis performed on all vessels COMPARISON: No prior exam. FINDINGS: The internal jugular, subclavian, axillary, brachial, basilic, cephalic, radial and ulnar veins are g enerally compressible and demonstrate augmentation. Color Doppler demonstrates good flow. IMPRESSION: No evidence of venous thrombus right arm
--- NOTE | 2024-10-09 22:12 | RAD REPORT ---
EXAM:Extremity Nonvascular Limited CLINICAL HISTORY: Right wrist mass TECHNIQUE: Sonographic evaluation of right wrist performed. FINDINGS: 2 cm complex cystic mass present within the dorsal right wrist which is palpable. It contains a few s eptations. No significant blood flow noted. IMPRESSION: 2 cm complex cystic mass dorsal aspect of the right wrist may represent a ganglion
[2024-10-09] MEDS ORDERED: GABAPENTIN 300 MG CAP ONE (22:20)
--- NOTE | 2024-10-09 22:26 | EDPHYS ---
Physician Documentation [facility] Name: Nerissa Lam Age: 44 yrs Sex: Female : 1980 Arrival Date: 10/09/2024 Time: 19:02 Bed 12 Private MD: ED Physician Garret Hand HPI: 10/09 20:46 This 44 yrs old Female presents to ER via Ambulatory with complaints of Wrist Pain. sb4 20:46 right wrist pain x 2 months secondary to presumed cyst. had a negative xray and was sb4 give a wrist brace. initially the brace was helping but it is not anymore. has not been resting it as she works at [employer]. has an appointment with ortho in 1 month. states the pain radiates up her arm. Historical: - Home Meds: 19:44 None [Active]; me1 - PMHx: 19:44 None; me1 - PSHx: 19:44 section; me1 - Immunization history:: Adult Immunizations up to date. - Infectious Disease History:: Denies. - Social history:: Smoking status: Patient reports the use of cigarette tobacco products, smokes 1.5 packs per day. ROS: 20:47 Constitutional: Negative for fever, chills, and weight loss, sb4 20:47 MS/extremity: Positive for pain, of the dorsal aspect of right wrist, 20:47 All other systems are negative, Exam: 20:47 Hand exam: ROM: limited active range of motion due to pain, limited passive range of sb4 motion due to pain, Circulation is intact in all extremities. Pulses: are normal with no appreciated deficits, sensation intact. 20:47 Skin: 20:47 Constitutional: This is a well developed, well nourished patient who is awake, alert, and in no acute distress. Head/Face: Normocephalic, atraumatic. Eyes: Extra-ocular motions intact. Periorbital areas with no swelling, redness, or edema. 20:47 Skin: lesion(s), small cyst dorsal aspect of right wrist, Vital Signs: 19:42 BP 133 / 71; Pulse 78; Resp 20; Temp 97.7; Pulse Ox 99% ; Weight 93.89 kg; Height 5 ft. me1 1 in. ; Pain 8/10; 22:00 BP 105 / 55; Pulse 87; Resp 18 S; Temp 98; Pulse Ox 100% on R/A; ha1 19:42 Body Mass Index 39.11 (93.89 kg, 154.94 cm) me1 19:42 Pain Scale: Adult me1 MDM: 19:36 Medical Screening Exam initiated sb4 10/10 00:00 Data reviewed: vital signs, nurses notes, radiologic studies, and as a result, I will sb4 discharge patient. Counseling: I had a detailed discussion with the patient and/or guardian regarding the historical points, exam findings, and any diagnostic results supporting the discharge/admit diagnosis, radiology results, the need for outpatient follow up, a orthopedic surgeon, to return to the emergency department if symptoms worsen or persist or if there are any questions or concerns that arise at home. 10/09 19:56 Order name: US Dianamty Nonvasular Limited; Complete Time: 22:14 sb4 10/09 20:38 Order name: UPPER EXTREMITY VENOUS UNILATE; Complete Time: 21:56 EDMS 10/09 22:25 Order name: Wrist Splint: preformed; Complete Time: 22:53 sb4 Administered Medications: 10/09 20:02 Drug: Ketorolac IM 30 mg IM once Route: IM; Site: left deltoid; tm6 20:30 Follow up: Response: No adverse reaction; Marked relief of symptoms; Pain is decreased ha1 20:02 Drug: Hydrocodone-Acetaminophen PO (7.5 mg-325 mg) 1 tabs PO once Route: PO; tm6 20:30 Follow up: Response: No adverse reaction ha1 22:15 Drug: Gabapentin PO 300 mg PO once Route: PO; ha1 22:51 Follow up: Response: No adverse reaction; Marked relief of symptoms ha1 Disposition Summary: 10/09/24 22:26 Discharge Ordered Notes: Location: Home sb4 Problem: an ongoing problem sb4 Symptoms: have improved sb4 Condition: Stable sb4 Diagnosis - Ganglion, right wrist sb4 - Pain in right wrist sb4 Followup: sb4 - With: Private Physician - When: As needed - Reason: Recheck today's complaints, Re-evaluation by your physician Discharge Instructions: - Discharge Summary Sheet sb4 - Ganglion Cyst sb4 - Wrist Pain, Adult sb4 Forms: - Patient Portal Instructions sb4 - Leadership Thank You Letter sb4 Prescriptions: - meloxicam 7.5 mg Oral tablet - take 1 tablet ORAL route daily; 30 tablet; Refills: 0, Product Selection sb4 Permitted - Cyclobenzaprine 5 mg Oral Tablet - take 1 tablet ORAL route 3 times per day As needed; 15 tablet; Refills: 0, sb4 Product Selection Permitted Signatures: Dispatcher [employer] EDMS Leigh Nunn, RN RN ha1 Karo Thornton PA-C PA-C sb4 Fabiana Silva RN RN me1 Jerrod Soria RN RN tm6 Corrections: (The following items were deleted from the chart) 19:56 19:56 Extremity Venous Uni Ltd+US.RAD.BRZ ordered. EDMS EDMS 19:56 19:56 Extrmty Nonvasular Limited+US.RAD.BRZ ordered. EDMS EDMS
--- NOTE | 2024-10-09 22:26 | ER ---
Nurse's Notes [facility] Name: Nerissa Lam Age: 44 yrs Sex: Female : 1980 Arrival Date: 10/09/2024 Time: 19:02 Bed 12 Private MD: Diagnosis: Ganglion, right wrist;Pain in right wrist Presentation: 10/09 19:42 Chief complaint: Patient states: was seen here for left wrist pain about a month ago me1 and was put in a splint which helped her pain until recently. Reports left wrist pain that is 8/10, throbbing and radiates up her left arm. Coronavirus screen: Vaccine status: Patient reports being unvaccinated. Ebola Screen: No symptoms or risks identified at this time. Initial Sepsis Screen: Does the patient meet any 2 criteria? No. Patient's initial sepsis screen is negative. Does the patient have a suspected source of infection? No. Patient's initial sepsis screen is negative. Risk Assessment: Do you want to hurt yourself or someone else? Patient reports no desire to harm self or others. Onset of symptoms is unknown. 19:42 Method Of Arrival: Ambulatory il1 19:42 Acuity: VIKKI 4 me1 Historical: - Home Meds: 19:44 None [Active]; me1 - PMHx: 19:44 None; me1 - PSHx: 19:44 section; me1 - Immunization history:: Adult Immunizations up to date. - Infectious Disease History:: Denies. - Social history:: Smoking status: Patient reports the use of cigarette tobacco products, smokes 1.5 packs per day. Screenin:[address] [facility] ED Fall Risk Assessment (Adult) History of falling in the last 3 months, tm6 including since admission No falls in past 3 months (0 pts) Confusion or Disorientation No (0 pts) Intoxicated or Sedated No (0 pts) Impaired Gait No (0 pts) Mobility Assist Device Used No (0 pt) Altered Elimination No (0 pt) Score/Fall Risk Level 0 - 2 = Low Risk Oriented to surroundings, Maintained a safe environment, Educated pt \T\ family on fall prevention, incl call for assistance when getting out of bed. Abuse screen: Denies threats or abuse. Denies injuries from another. Nutritional screening: No deficits noted. Tuberculosis screening: No symptoms or risk factors identified. Assessment: 19:40 General: Appears in no apparent distress. uncomfortable, Behavior is calm, cooperative. tm6 Pain: Complains of pain in dorsal aspect of right wrist and palmar aspect of right wrist Pain currently is 8 out of 10 on a pain scale. Neuro: Level of Consciousness is awake, alert, obeys commands, Oriented to person, place, time, situation. Cardiovascular: Patient's skin is warm and dry. Respiratory: Airway is patent Respiratory effort is even, unlabored, Respiratory pattern is regular, symmetrical. GI: No signs and/or symptoms were reported involving the gastrointestinal system. Abdomen is round non-distended. : No signs and/or symptoms were reported regarding the genitourinary system. EENT: No signs and/or symptoms were reported regarding the EENT system. Derm: No signs and/or symptoms reported regarding the dermatologic system. Musculoskeletal: Reports pain in dorsal aspect of right wrist and palmar aspect of right wrist Pain is 8 out of 10 on a pain scale. 20:28 Reassessment: Patient and/or family updated on plan of care and expected duration. Pain tm6 level reassessed. Patient is alert, oriented x 3, equal unlabored respirations, skin warm/dry/pink. 22:50 Reassessment: Patient and/or family updated on plan of care and expected duration. Pain ha1 level reassessed. Patient is alert, oriented x 3, equal unlabored respirations, skin warm/dry/pink. Patient states feeling better. Patient states symptoms have improved. Vital Signs: 19:42 BP 133 / 71; Pulse 78; Resp 20; Temp 97.7; Pulse Ox 99% ; Weight 93.89 kg; Height 5 ft. me1 1 in. ; Pain 8/10; 22:00 BP 105 / 55; Pulse 87; Resp 18 S; Temp 98; Pulse Ox 100% on R/A; ha1 19:42 Body Mass Index 39.11 (93.89 kg, 154.94 cm) me1 19:42 Pain Scale: Adult me1 ED Course: 19:06 Patient arrived in ED. mg5 19:12 Karo Thornton PA-C is PHCP. sb4 19:12 Garret Hand MD is Attending Physician. sb4 19:36 Jerrod Soria RN is Primary Nurse. tm6 19:40 Patient has correct armband on for positive identification. Bed in low position. Call tm6 light in reach. Side rails up X 1. Provided Education on: use of call salazar. Client placed on continuous cardiac and pulse oximetry monitoring. NIBP monitoring applied. Pulse ox on. NIBP on. Door closed. Noise minimized. Warm blanket given. Pillow given. 19:44 Triage completed. me1 19:44 Patient placed in an exam room. me1 21:50 US Extrmty Nonvasular Limited In Process Unspecified. EDMS 21:50 UPPER EXTREMITY VENOUS UNILATE In Process Unspecified. EDMS 22:50 Velcro wrist splint applied to right wrist. ha1 22:51 No provider procedures requiring assistance completed. Patient did not have IV access ha1 during this emergency room visit. Administered Medications: 20:02 Drug: Ketorolac IM 30 mg IM once Route: IM; Site: left deltoid; tm6 20:30 Follow up: Response: No adverse reaction; Marked relief of symptoms; Pain is decreased ha1 20:02 Drug: Hydrocodone-Acetaminophen PO (7.5 mg-325 mg) 1 tabs PO once Route: PO; tm6 20:30 Follow up: Response: No adverse reaction ha1 22:15 Drug: Gabapentin PO 300 mg PO once Route: PO; ha1 22:51 Follow up: Response: No adverse reaction; Marked relief of symptoms ha1 Medication: 19:40 VIS not applicable for this client. tm6 Outcome: 22:26 Discharge ordered by . sb4 22:51 Discharged to home ambulatory, with family, ha1 22:51 Condition: stable 22:51 Discharge instructions given to patient, Instructed on discharge instructions, follow up and referral plans. medication usage, Demonstrated understanding of instructions, follow-up care, medications, Prescriptions given X 2, 22:52 Patient left the ED. ha1 Signatures: Dispatcher [employer] Leigh Pascal RN RN ha1 Karo Thornton PA-C PA-C sb4 Fabiana Silva RN RN me1 Jessica Amanda mg5 Jerrod Soria RN RN tm6
[2024-10-10 01:54] VITALS: BP 105/55; TEMP 98; O2SAT 100
== END 2024-10-09 22:52 | disposition home or self-care (01) ==
LOC: ER 19:02
DX: M67.431 Ganglion, right wrist (principal); F17.210 Nicotine dependence, cigarettes, uncomplicated
CPT/HCPCS: 76882; 93971; 96372; 99284

== ENCOUNTER 2025-01-29 17:19 | Emergency (ER) | payer OTHER ==
--- OUTSIDE RECORDS SUMMARY | 2025-01-29 17:25 | XMS REPORT | Continuity of Care Document ---
Author Name Unknown Address [address] [facility] [address] [place] [address] [facility] Address 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 Name Role Phone [address] Attending Clinician Unavailable Physician, No Primary or Family Admitting Clinic imani Unavailable Payers Payer Name Policy Type Policy Number Effective Date Expirati on Date Source Allergies, Adverse Reactions, Alerts Allergy Name Allergy Type Status Severity Reaction(s) Onset Date Inactive Date Treating Clinician Comments Source No Known Allergie s DA Active U 04-20 00:00: 00 [facility] No Known Allergie s DA Active U 04-20 00:00: 00 [facility] Encounters Start Date/Time End Date/Time Encounter Type Admission Type Attending Clinicians Care Facility Care Department Encounter ID Source 2020-04-20 01:50:00 Inpatient [facility] [id number] [facility] 2021-03-23 15:59:00 2021-03-23 20:56:[address] [facility] [id number] [facility] Notes Date/Time Note Provider Source 2020-04-20 02:09:00 [facility] EMERGENCY PROVIDER REPORT REPORT#:[id number] REPORT STATUS: Signed DATE:04/20/20 TIME: 0209 PATIENT: JASVIR VASQUEZICA UNIT #: [id number] ROOM/BED: AGE: 39 SEX: F PCP PHYS: [...] patient. 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 Time of Re-Eval 253 Re-Eval Status Improved ED Course Medication(s) Ordered [...] or a call to 911. at [phone] [facility] #:[id number] END OF REPORT [facility]
[2025-01-29] MEDS ORDERED: MORPHINE 4 MG/ML SYR ONE (19:14)
[2025-01-29] MEDS ORDERED: NA CHLORIDE 0.9% 1,000 ML ONE (19:15)
[2025-01-29] MEDS ORDERED: ONDANSETRON 4 MG/2 ML VIAL ONE (19:15)
[2025-01-29 19:22] LABS: Absolute Basophils 0.1 K/uL (0-0.5); Absolute Eosinophils 0.1 K/uL (0-0.5); Absolute Lymphocytes (CBC) 2.9 K/uL (0.7-4.9); Absolute Monocytes 0.7 K/uL (0.1-1.3); Absolute Neutrophil 8.8 K/uL (1.8-8.0); Basophils % 0.7 % (0-1.3); Eosinophils % 1.1 % (0-4.4); Hematocrit 44.8 % (36.0-45.0); Hemoglobin 14.8 g/dL (12.0-15.0); Lymphocytes % 23.3 % (15.3-44.8); MCH 28.5 pg (27.0-35.0); MCHC 33.1 g/dL (32.0-36.0); MPV 7.5 fL (7.6-11.3); Monocytes % 5.2 % (3.3-12.3); Neutrophils % 69.7 % (41.7-73.7); Nucleated Red Blood Cells % 0.2 % (0-0); Platelets 344 thou/uL (152-406); RBC Red Blood Cell Count 5.21 M/uL (3.86-4.86); Red Cell Distribution Width 14.3 % (12.1-15.2)
[2025-01-29 19:30] LABS: Specific Gravity 1.029 (1.005-1.030); Sqamous Epithelial <5 /HPF (None Seen); Urine Bacteria None Seen /HPF (<20); Urine Bilirubin NEGATIVE (Negative); Urine Blood Negative (Negative); Urine Clarity Turbid (Clear); Urine Color Light-Yellow (Yellow); Urine Crystals Unidentified Few /HPF (None Seen); Urine Culture Reflex Order NOT NEEDED; Urine Glucose NEGATIVE (Negative); Urine Ketones 1+ (Negative); Urine Microscopic Reflex YN ORDER UMIC; Urine Nitrite NEGATIVE (Negative); Urine Protein NEGATIVE (Negative); Urine RBC <5 /HPF (None Seen); Urine Urobilinogen 1+ (Normal); Urine WBC <5 /HPF (<5); Urine WBC Clump Rare /HPF (None Seen); Urine Yeast (Budding) Trace /HPF (None Seen)
[2025-01-29 19:46] LABS: Albumin 3.3 g/dL (3.4-5.0); Anion Gap 9.1 mEq/L (5.0-15.0); Bilirubin Total 0.2 mg/dL (0.2-1.0); Globulin 3.4 g/dL (2.3-3.5); Potassium 4.1 mEq/L (3.5-5.1); Protein, Total 6.7 g/dL (6.4-8.2)
--- NOTE | 2025-01-29 20:46 | RAD REPORT ---
EXAMINATION: Abdomen Pelvis W/Wo Contrast CLINICAL INDICATION: Female, 44 years old.right flank pain TECHNIQUE: CT abdomen and pelvis was performed before and after the administration of IV contrast as per department protocol. Axial, sagittal and coronal reconstructions were obtained. One or more of the following dose reduction techniques were used: Automated exposure control, adjustment of the mA a nd/or kV according to patient size, and/or iterative reconstruction. Unless otherwise specified, incidental findings do not require dedicated imaging follow-up. [id number]. COMPARISON: No prior exam. FINDINGS: LOWER CHEST: No acute process identified.No significant pericardial effusion. Mild circumferential th ickening of the distal esophagus which could reflect esophagitis. UPPER GI: No significant abnormality. LIVER: No significant focal abnormality. GALLBLADDER/BILE DUCTS: No biliary ductal dilatation.? PANCREAS: No mass, ductal dilation, or roderick-pancreatic fluid. SPLEEN: Unremarkable. ADRENALS: No adrenal masses. KIDNEYS AND URETERS: No hydronephrosis.No suspicious renal mass.No renal calculi. ABDOMINAL AORTA AND OTHER VESSELS: Normal caliber aorta and IVC. PERITONEUM: No abnormal free fluid. No free air. LYMPH NODES: No pathologic lymphadenopathy. ABDOMINAL WALL: Unremarkable SMALL BOWEL/COLON: Small bowel has normal course and caliber. No colonic wall thickening or pericolon ic inflammatory changes.Normal appendix. Mild diverticulosis without diverticulitis. Mild formed stool burden. URINARY BLADDER: Underdistended but grossly unremarkable. REPRODUCTIVE ORGANS: Slight asymmetry to the ovaries with 13 mm right ovarian cyst. No follow-up requ ired. MUSCULOSKELETAL: No acute or suspicious osseous abnormality. ADDITIONAL FINDINGS: None. IMPRESSION: No acute findings within the abdomen or pelvis. No appendicitis. No urinary tract calculi.
[2025-01-29] MEDS ORDERED: KETOROLAC 30 MG/ML INJ ONE (21:05)
[2025-01-29] MEDS ORDERED: NA CHLORIDE 0.9% 100 ML ONE (21:05)
[2025-01-29] MEDS ORDERED: METHOCARBAMOL 1,000 MG/10 ML VIAL ONE (21:05)
[2025-01-29] MEDS ORDERED: HYDROCODONE/APAP 10/325 TAB ONE (22:01)
--- NOTE | 2025-01-29 22:04 | EDPHYS ---
Physician Documentation [facility] Name: Nerissa Lam Age: 44 yrs Sex: Female : 1980 Arrival Date: 01/29/2025 Time: 17:19 Bed 15 Private MD: ED Physician Siddharth Kruger HPI: 01/29 18:05 This 44 yrs old Female presents to ER via Ambulatory with complaints of Lower Right cp Abdonimal Pain, Lower Back Pain. 18:05 The patient complains of pain in the right flank. cp 18:05 The pain radiates to the right lower quadrant. Onset: The symptoms/episode cp began/occurred today. Associated signs and symptoms: Pertinent negatives: diarrhea, fever, headache, pain radiating to the lower extremities, vomiting. Severity of pain: in the emergency department the pain is unchanged despite home interventions. LEAD SCIENTIST: 22:12 Not cm10 Historical: - Allergies: 17:57 No Known Allergies; ap3 - PSHx: 17:57 section; ap3 - Immunization history:: Adult Immunizations up to date. - Infectious Disease History:: Denies. - Social history:: Smoking status: Patient reports the use of cigarette tobacco products, smokes one pack cigarettes per day. ROS: 18:10 Cardiovascular: Negative for chest pain, cp 18:10 Eyes: Negative for injury, pain, redness, and discharge, cp 18:10 Constitutional: Negative for body aches, chills, fever, poor PO intake, 18:10 Respiratory: Negative for cough, shortness of breath, wheezing, 18:10 Abdomen/GI: Positive for abdominal pain, nausea, 18:10 Back: Positive for flank pain, on the right, 18:10 : Negative for urinary symptoms, vaginal bleeding, 18:10 Neuro: Negative for altered mental status, dizziness, headache, numbness, weakness, 18:10 All other systems are negative, Exam: 18:15 Constitutional: The patient appears in no acute distress, alert, awake, non-toxic, well cp developed, well nourished, uncomfortable, 18:15 Head/Face: Normocephalic, atraumatic. cp 18:15 Eyes: Periorbital structures: appear normal, Conjunctiva: normal, no exudate, no injection, Sclera: no appreciated abnormality, Lids and lashes: appear normal, bilaterally, 18:15 ENT: External ear(s): are unremarkable, Nose: is normal, Mouth: Lips: moist, Oral mucosa: moist, Posterior pharynx: Airway: no evidence of obstruction, patent, 18:15 Chest/axilla: Inspection: normal, 18:15 Cardiovascular: Rate: tachycardic, Rhythm: regular, 18:15 Respiratory: the patient does not display signs of respiratory distress, Respirations: normal, no use of accessory muscles, no retractions, labored breathing, is not present, Breath sounds: are clear throughout, no decreased breath sounds, no stridor, no wheezing, 18:15 Abdomen/GI: Inspection: abdomen appears normal, Palpation: soft, in all quadrants, moderate abdominal tenderness, in the posterior aspect of right lateral abdomen, anterior aspect of right lateral abdomen and right lower quadrant, rebound tenderness, is not appreciated, 18:15 Skin: no rash present. 18:15 Neuro: Orientation: to person, place \T\ time. Mentation: is normal, Motor: moves all fours, strength is normal, Sensation: is normal, Vital Signs: 17:55 BP 138 / 94; Pulse 109; Resp 18; Temp 97.3; Pulse Ox 98% ; Weight 89.36 kg; Height 5 ap3 ft. 1 in. ; Pain 9/10; 19:26 BP 119 / 69; Pulse 74; Resp 15; Pulse Ox 97% ; cm10 20:00 BP 106 / 70; Pulse 71; Resp 15; Pulse Ox 97% ; cm10 20:30 BP 115 / 72; Pulse 74; Resp 15; Pulse Ox 98% on R/A; cm10 21:00 BP 110 / 73; Pulse 65; Resp 15; Pulse Ox 97% ; cm10 22:02 BP 112 / 68; Pulse 72; Resp 15; Pulse Ox 96% ; cm10 17:55 Body Mass Index 37.22 (89.36 kg, 154.94 cm) ap3 17:55 Pain Scale: Adult ap3 MDM: 18:02 Medical Screening Exam initiated cp 22:02 Data reviewed: vital signs, nurses notes, lab test result(s), radiologic studies, CT cp scan, and as a result, I will discharge patient. 22:02 Differential diagnosis: nephrolithiasis, pyelonephritis, UTI, colitis. I considered the cp following discharge prescriptions or medication management in the emergency department Medications were administered in the Emergency Department. See MAR. Counseling: I had a detailed discussion with the patient and/or guardian regarding the historical points, exam findings, and any diagnostic results supporting the discharge/admit diagnosis, lab results, radiology results, to return to the emergency department if symptoms worsen or persist or if there are any questions or concerns that arise at home. Response to treatment: the patient's symptoms have mildly improved after treatment, and as a result, I will discharge patient. Special discussion: Based on the patient's Hx, exam, and Dx evaluation, there is no indication for emergent surgery or inpatient Tx. It is understood by the patient/guardian that if the Sx's persist or worsen they need to return immediately for re-evaluation. 01/29 18:03 Order name: CBC with Diff; Complete Time: 19:35 cp 01/29 18:03 Order name: CMP; Complete Time: 20:57 cp 01/29 18:03 Order name: Lipase; Complete Time: 20:57 cp 01/29 18:03 Order name: Test, Urine; Complete Time: 19:35 cp 01/29 18:03 Order name: Urinalysis w/ reflexes; Complete Time: 19:35 cp 01/29 19:36 Order name: CT Abd/Pelvis- W/WO Contrast; Complete Time: 20:57 cp 01/29 18:03 Order name: IV Saline Lock; Complete Time: 19:27 cp 01/29 18:03 Order name: Labs collected and sent; Complete Time: 19:27 cp Administered Medications: 19:27 Drug: morphine IVP or IV 4 mg IVP once over 4 mins Route: IVP; Infused Over: 4 mins; cm10 Site: left antecubital; 20:07 Follow up: Response: No adverse reaction cm10 19:27 Drug: Ondansetron IVP 4 mg IVP once; over 2 minutes Route: IVP; Site: left antecubital; cm10 20:07 Follow up: Response: No adverse reaction cm10 19:27 Drug: NS 0.9% IV 1000 ml IV at 1 bolus Per protocol; to be given as a bolus over 60 cm10 minutes Route: IV; Rate: 1 bolus; Site: left antecubital; 20:27 Follow up: Response: No adverse reaction; IV Status: Completed infusion; IV Intake: cm10 1000ml 21:17 Drug: Methocarbamol IVPB 1 grams IVPB once over 1 hrs; (mix in NS 100 mL) Route: IVPB; cm10 Infused Over: 1 hrs; Site: left antecubital; 22:13 Follow up: Response: No adverse reaction; IV Status: Completed infusion; IV Intake: cm10 100ml 21:17 Drug: Ketorolac IVP 30 mg IVP once Route: IVP; Site: left antecubital; cm10 22:02 Follow up: Response: No adverse reaction cm10 22:11 Drug: HYDROcodone-acetaminophen PO 10 mg-325 mg 1 tabs PO once Route: PO; cm10 22:11 Follow up: Response: Medication administered at discharge. cm10 Disposition Summary: 01/29/25 22:03 Discharge Ordered Notes: Location: Home cp Problem: new cp Symptoms: have improved cp Condition: Stable cp Diagnosis - Low back pain cp Followup: cp - With: Private Physician - When: 5 - 6 days - Reason: Recheck today's complaints Discharge Instructions: - Discharge Summary Sheet cp - Acute Back Pain, Adult cp - Heat Therapy cp - Back Exercises cp Forms: - Medication Reconciliation Form cp - Antibiotic Education cp - Prescription Opioid Use cp - Patient Portal Instructions cp - Leadership Thank You Letter cp Prescriptions: - Anaprox DS 550 mg Oral Tablet - take 1 tablet ORAL route every 12 hours As needed; 20 tablet; Refills: 0, cp Product Selection Permitted - methocarbamol 750 mg Oral tablet - take 1 tablet ORAL route 3 times per day; 30 tablet; Refills: 0, Product cp Selection Permitted Addendum: 01/31/2025 07:01 Co-signature as Attending Physician, Siddharth Kruger MD I reviewed the patient's care r n provided by the Advanced Practice Provider and agree with the diagnosis and treatment plan. Signatures: Dispatcher [employer] Siddharth Parnell MD MD rn Page, Corey, PA PA cp Peace Pascal RN RN ap3 Whitney Shaffer RN RN cm10 Corrections: (The following items were deleted from the chart) 01/30 21:52 21:50 Constitutional: The patient appears in no acute distress, alert, awake, cp non-toxic, well developed, well nourished, uncomfortable, cp
--- NOTE | 2025-01-29 22:04 | ER ---
Nurse's Notes [facility] Name: Nerissa Lam Age: 44 yrs Sex: Female : 1980 Arrival Date: 01/29/2025 Time: 17:19 Bed 15 Private MD: Diagnosis: Low back pain Presentation: 01/29 17:55 Chief complaint: Patient states: she is having right lower back and right lower mid ap3 abdomen pain. that started earlier today. patient currently rates her pain as a 9/10 on the pain scale. patient denies any nausea or vomiting and reports normal urinary and bowel habits at this time. Coronavirus screen: At this time, the client does not indicate any symptoms associated with coronavirus-19. Ebola Screen: No symptoms or risks identified at this time. Initial Sepsis Screen: Does the patient meet any 2 criteria? HR > 90 bpm. Does the patient have a suspected source of infection? No. Patient's initial sepsis screen is negative. Risk Assessment: Do you want to hurt yourself or someone else? Patient reports no desire to harm self or others. Onset of symptoms was January 29, 2025. 17:55 Method Of Arrival: Ambulatory ap3 17:55 Acuity: VIKKI 3 ap3 Triage Assessment: 17:57 General: Appears uncomfortable, Behavior is calm, cooperative, appropriate for age. ap3 Pain: Complains of pain in back and right lower quadrant Pain currently is 9 out of 10 on a pain scale. Neuro: Level of Consciousness is awake, alert, obeys commands, Oriented to person, place, time, situation. Cardiovascular: Patient's skin is warm and dry. Respiratory: Airway is patent Respiratory effort is even, unlabored, Respiratory pattern is regular, symmetrical. : Reports pain in right flank(s). Musculoskeletal: Reports pain in back and right lower quadrant. PHARMACOLOGIST: 22:12 Not cm10 Historical: - Allergies: 17:57 No Known Allergies; ap3 - PSHx: 17:57 section; ap3 - Immunization history:: Adult Immunizations up to date. - Infectious Disease History:: Denies. - Social history:: Smoking status: Patient reports the use of cigarette tobacco products, smokes one pack cigarettes per day. Screenin:58 Abuse screen: Denies threats or abuse. Nutritional screening: No deficits noted. ap3 Tuberculosis screening: No symptoms or risk factors identified. 19:28 [facility] ED Fall Risk Assessment (Adult) History of falling in the last 3 months, cm10 including since admission No falls in past 3 months (0 pts) Confusion or Disorientation No (0 pts) Intoxicated or Sedated No (0 pts) Impaired Gait No (0 pts) Mobility Assist Device Used No (0 pt) Altered Elimination No (0 pt) Score/Fall Risk Level 0 - 2 = Low Risk Oriented to surroundings, Maintained a safe environment, Hourly rounding (assess needs \T\ fall precautionary measures) done. Assessment: 19:27 General: Appears in no apparent distress. uncomfortable, Behavior is calm, cooperative. cm10 Pain: Complains of pain in right lower quadrant Pain radiates to back Pain currently is 9 out of 10 on a pain scale. Neuro: No deficits noted. Level of Consciousness is awake, alert, obeys commands, Oriented to person, place, time, situation, Appropriate for age. Respiratory: No deficits noted. Airway is patent Respiratory effort is even, unlabored, Respiratory pattern is regular, symmetrical. GI: Abdomen is obese, Reports lower abdominal pain. 21:23 Reassessment: Patient appears in no apparent distress at this time. Patient and/or cm10 family updated on plan of care and expected duration. Pain level reassessed. Patient is alert, oriented x 3, equal unlabored respirations, skin warm/dry/pink. Vital Signs: 17:55 BP 138 / 94; Pulse 109; Resp 18; Temp 97.3; Pulse Ox 98% ; Weight 89.36 kg; Height 5 ap3 ft. 1 in. ; Pain 9/10; 19:26 BP 119 / 69; Pulse 74; Resp 15; Pulse Ox 97% ; cm10 20:00 BP 106 / 70; Pulse 71; Resp 15; Pulse Ox 97% ; cm10 20:30 BP 115 / 72; Pulse 74; Resp 15; Pulse Ox 98% on R/A; cm10 21:00 BP 110 / 73; Pulse 65; Resp 15; Pulse Ox 97% ; cm10 22:02 BP 112 / 68; Pulse 72; Resp 15; Pulse Ox 96% ; cm10 17:55 Body Mass Index 37.22 (89.36 kg, 154.94 cm) ap3 17:55 Pain Scale: Adult ap3 ED Course: 17:26 Patient arrived in ED. cj3 17:57 Triage completed. ap3 17:58 Arm band placed on right wrist. ap3 18:02 Shane Mayo PA is PHCP. cp 18:02 Siddharth Kruger MD is Attending Physician. cp 18:32 Whitney Shaffer, CARRIE is Primary Nurse. cm10 19:15 Inserted saline lock: 20 gauge in left antecubital area, using aseptic technique. Blood sa1 collected. Flushed with 10 mL NS. 19:18 Initial lab(s) drawn, by me, sent to lab. sa1 19:24 Urine collected: clean catch specimen, clear. sa1 19:28 Patient has correct armband on for positive identification. Bed in low position. Call cm10 light in reach. Side rails up X 1. Provided Education on: ER PROCESS AND PROCEDURES.. Pulse ox on. NIBP on. 20:24 CT Abd/Pelvis- W/WO Contrast In Process Unspecified. EDMS 22:12 No provider procedures requiring assistance completed. IV discontinued, intact, cm10 bleeding controlled, No redness/swelling at site. Pressure dressing applied. Administered Medications: 19:27 Drug: morphine IVP or IV 4 mg IVP once over 4 mins Route: IVP; Infused Over: 4 mins; cm10 Site: left antecubital; 20:07 Follow up: Response: No adverse reaction cm10 19:27 Drug: Ondansetron IVP 4 mg IVP once; over 2 minutes Route: IVP; Site: left antecubital; cm10 20:07 Follow up: Response: No adverse reaction cm10 19:27 Drug: NS 0.9% IV 1000 ml IV at 1 bolus Per protocol; to be given as a bolus over 60 cm10 minutes Route: IV; Rate: 1 bolus; Site: left antecubital; 20:27 Follow up: Response: No adverse reaction; IV Status: Completed infusion; IV Intake: cm10 1000ml 21:17 Drug: Methocarbamol IVPB 1 grams IVPB once over 1 hrs; (mix in NS 100 mL) Route: IVPB; cm10 Infused Over: 1 hrs; Site: left antecubital; 22:13 Follow up: Response: No adverse reaction; IV Status: Completed infusion; IV Intake: cm10 100ml 21:17 Drug: Ketorolac IVP 30 mg IVP once Route: IVP; Site: left antecubital; cm10 22:02 Follow up: Response: No adverse reaction cm10 22:11 Drug: HYDROcodone-acetaminophen PO 10 mg-325 mg 1 tabs PO once Route: PO; cm10 22:11 Follow up: Response: Medication administered at discharge. cm10 Medication: 19:28 VIS not applicable for this client. cm10 Intake: 20:27 IV: 1000ml; Total: 1000ml. cm10 22:13 IV: 100ml; Total: 1100ml. cm10 Outcome: 22:03 Discharge ordered by MD. cp 22:12 Discharged to home ambulatory, with significant other, cm10 22:12 Condition: good 22:12 Discharge instructions given to patient, Instructed on discharge instructions, follow up and referral plans. medication usage, Demonstrated understanding of instructions, follow-up care, medications, Prescriptions given X 2, 22:12 Patient left the ED. cm10 Signatures: Dispatcher [employer] EDMS Shane Mayo PA PA cp Prokisch, Amanda, RN RN ap3 Whitney Shaffer RN RN cm10 Sultan Vanesa sa1 Elin Mcadams 3
[2025-01-29 22:45] VITALS: TEMP 98.2; O2SAT 100
[2025-01-29 22:47] VITALS: BP 131/74
== END 2025-01-29 22:12 | disposition home or self-care (01) ==
LOC: ER 17:19
DX: M54.50 Low back pain, unspecified (principal); R10.31 Right lower quadrant pain; F17.210 Nicotine dependence, cigarettes, uncomplicated
CPT/HCPCS: 96365; 96361; 85025; 81001; 36415; 81025; 83690; 80053; 74178; 96375; 99284; Q9967; J2405; J2800; J7030